=== PATIENT | male | born 1985 | race Caucasian/White ===

== ENCOUNTER 2023-07-20 20:57 | Emergency (ER) | payer MEDICAID, SELFPAY ==
[2023-07-20] VITALS (15 sets, daily range): BP systolic 126–180; BP diastolic 86–153; PULSE 79–101; RESP 6–32; TEMP 36.9; O2SAT 93–98; BMI 25.1
--- NOTE | 2023-07-20 21:09 | ECG_ITS ---
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
--- NOTE | 2023-07-20 21:11 | ED_ITS ---
Documented by User: DEANNA Higuera 07/20/23 21:44 HPI - SOB/Dyspnea General Chief Complaint: Shortness of Breath/Dyspnea Stated Complaint: DIFF BREATHING, ASTHMA DIFF SPEAKING Time Seen by Provider: 07/20/23 21:03 Source: patient Mode of arrival: walk-in Limitations: no limitations History of Present Illness HPI Narrative: patient is a 38-year-old male with a history of asthma presents to the emergency department for shortness of breath and wheezing over the last two weeks. Patient has a history of asthma, he uses a rescue inhaler, Flovent and nebulizers as needed. He did an albuterol nebulizer prior to arrival. He has been on Tessalon Perles, Medrol Dosepak. he states he has had pain in the chest as well as tightness. He continues to use a vape daily. He denies fevers, vomiting. He has had occasional sputum production. He reports significant shortness of breath with exertion as well as palpitations. Related Data Home Medications Medication Instructions Recorded Confirmed albuterol sulfate 1.25 mg/3 mL mg 07/20/23 solution for nebulization albuterol sulfate 90 mcg/actuation inhalation 07/20/23 aerosol inhaler Allergies Allergy/AdvReac Type Severity Reaction Status Date / Time morphine Allergy Mild itchy Verified 07/20/23 21:04 Review of Systems ROS Constitutional Denies: fever or chills Ears, nose, mouth, and throat Denies: throat pain Cardiovascular Reports: chest pain Respiratory Reports: shortness of breath, cough and wheezing Gastrointestinal Denies: abdominal pain, nausea or vomiting Musculoskeletal Denies: back pain Integumentary/Breast Denies: rash Neurological Denies: headache Endocrine Denies: excessive urination PFSH PFS Social History Smoking status: Current every day smoker Exam Narrative Exam Narrative: Gen.: Awake, alert, in no distress Head: Normocephalic, atraumatic ENT: Moist mucous membranes Respiratory: No respiratory distress, patient speaks in full sentences, tachypnea noted with significant inspiratory and expiratory wheezing. Wheezing is worse on the left upper and lower lobes Cardio: tachycardia Extremities: Moves extremities equally Psych: Normal mood and affect Neuro: No focal neuro deficit Skin: Warm, dry, intact Constitutional Vital Signs, click to edit/add: Last Vital Signs Temp 98.5 F 07/20/23 21:00 Pulse 81 07/21/23 00:00 Resp 19 07/21/23 00:00 BP 126/86 07/20/23 22:00 Pulse Ox 93 L 07/20/23 23:21 O2 Del Method Room Air 07/20/23 23:21 Course Vital Signs Vital signs: Vital Signs Temperature 98.5 F 07/20/23 21:00 Pulse Rate 101 H 07/20/23 21:00 Respiratory Rate 22 07/20/23 21:00 Blood Pressure 156/104 H 07/20/23 21:00 Pulse Oximetry 94 L 07/20/23 21:00 Oxygen Delivery Method Room Air 07/20/23 21:00 Temperature 98.5 F 07/20/23 21:00 Pulse Rate 81 07/21/23 00:00 Respiratory Rate 19 07/21/23 00:00 Blood Pressure 126/86 07/20/23 22:00 Pulse Oximetry 93 L 07/20/23 23:21 Oxygen Delivery Method Room Air 07/20/23 23:21 MDM - SOB/Dyspnea MDM Narrative Medical decision making narrative: 2144: patient was medicated with breathing treatment, IV Solu-Medrol and fluids as well as IV magnesium. Lab studies show normal d-dimer,remainder of the lab studies are pending and chest x-ray is also pending. case is turned over to attending physician for repeat evaluation, review of results and disposition. Medical Records Attestation: I reviewed the patient's medical records. Lab Data Attestation: I reviewed the patient's lab results. Labs: Lab Results 07/20/23 Range/Units 21:10 WBC 12.7 H (4.0-11.0) 10^3/uL RBC 4.84 (4.70-6.10) 10^6/uL Hgb 15.0 (14.0-18.0) g/dL Hct 44.5 (42.0-54.0) % MCV 91.9 (80.0-94.0) fL MCH 31.0 (25.9-34.0) pg MCHC 33.7 (29.9-35.2) g/dL RDW 12.4 (11.0-15.0) % Plt Count 257 (150-450) 10^3/uL MPV 10.5 (9.5-13.5) fL Neut % (Auto) 53.8 (43.0-75.0) % Lymph % (Auto) 22.1 (20.5-60.0) % Spencer % (Auto) 12.0 (1.7-12.0) % Eos % (Auto) 11.1 H (0.9-7.0) % Baso % (Auto) 0.8 (0.2-2.0) % Neut # (Auto) 6.8 H (1.4-6.5) 10^3/uL Lymph # (Auto) 2.8 (1.2-3.8) 10^3/uL Spencer # (Auto) 1.5 H (0.3-0.8) 10^3/uL Eos # (Auto) 1.4 H (0.0-0.7) 10^3/uL Baso # (Auto) 0.1 (0.0-0.1) 10^3/uL Abs Immat Gran (auto) 0.03 (0.00-0.03) 10^3/uL Imm/Tot Granulo (auto) 0.2 (0.0-0.5) % PT 9.8 (9.0-11.6) sec INR <0.93 APTT 40.4 H* (22.3-36.2) sec D-Dimer 0.21 (<=0.59) mg/L FEU VBG pH 7.423 (7.330-7.430) VBG pCO2 43.6 (40.0-52.0) mmHg Sodium 135 L (136-145) mmol/L Potassium 3.3 L (3.5-5.1) mmol/L Chloride 99 (98-107) mmol/L Carbon Dioxide 28.7 (21.0-32.0) mmol/L Anion Gap 10.6 BUN 14.0 (7.0-18.0) mg/dL Creatinine 1.03 (0.70-1.30) mg/dL Est GFR ( Amer) >60 (>=60) Est GFR (Non-Af Amer) >60 (>=60) BUN/Creatinine Ratio 13.6 Glucose 94 (74-106) mg/dL Calcium 9.0 (8.5-10.1) mg/dL Total Bilirubin 0.4 (0.2-1.0) mg/dL AST 32 (15-37) U/L ALT 48 (16-63) U/L Alkaline Phosphatase 104 (46-116) U/L Troponin I High Sens 4.2 (4.0-76.1) pg/mL NT-Pro-B Natriuret Pep 12.0 (<=450.0) pg/mL Total Protein 7.5 (6.4-8.2) g/dL Albumin 3.4 (3.4-5.0) g/dL Globulin 4.1 g/dL Albumin/Globulin Ratio 0.8 ECG Data Attestation: I personally reviewed and interpreted this ECG as follows: (normal sinus rhythm at a rate of ninety-five, no acute ST elevation, no ectopy. EKG reviewed by attending physician) ECG interpretation date: 07/20/23 ECG interpretation time: 21:23 Discharge Plan Discharge Chief Complaint: Shortness of Breath/Dyspnea Clinical Impression: Shortness of breath, Asthma with acute exacerbation Patient Disposition: Home, Self-Care Prescriptions / Home Meds: No Action albuterol sulfate 1.25 mg/3 mL solution for nebulization albuterol sulfate 90 mcg/actuation HFA aerosol inhaler INHALATION Instructions: Asthma (ED) Additional Instructions: follow up with your doctor tomorrow for recheck Stand Alone Forms: Portal Instructions Referrals: RAJIV SHOOK [Primary Care Provider] - 1 week Documented by User: Javon Avila MD 07/21/23 00:33 HPI - SOB/Dyspnea General Chief Complaint: Shortness of Breath/Dyspnea Stated Complaint: DIFF BREATHING, ASTHMA DIFF SPEAKING Time Seen by Provider: 07/20/23 21:03 Related Data Home Medications Medication Instructions Recorded Confirmed albuterol sulfate 1.25 mg/3 mL mg 07/20/23 solution for nebulization albuterol sulfate 90 mcg/actuation inhalation 07/20/23 aerosol inhaler Allergies Allergy/AdvReac Type Severity Reaction Status Date / Time morphine Allergy Mild itchy Verified 07/20/23 21:04 PFSH PFS Social History Smoking status: Current every day smoker Exam Constitutional Vital Signs, click to edit/add: Last Vital Signs Temp 98.5 F 07/20/23 21:00 Pulse 81 07/21/23 00:00 Resp 19 07/21/23 00:00 BP 126/86 07/20/23 22:00 Pulse Ox 93 L 07/20/23 23:21 O2 Del Method Room Air 07/20/23 23:21 Course Vital Signs Vital signs: Vital Signs Temperature 98.5 F 07/20/23 21:00 Pulse Rate 101 H 07/20/23 21:00 Respiratory Rate 22 07/20/23 21:00 Blood Pressure 156/104 H 07/20/23 21:00 Pulse Oximetry 94 L 07/20/23 21:00 Oxygen Delivery Method Room Air 07/20/23 21:00 Temperature 98.5 F 07/20/23 21:00 Pulse Rate 81 07/21/23 00:00 Respiratory Rate 19 07/21/23 00:00 Blood Pressure 126/86 07/20/23 22:00 Pulse Oximetry 93 L 07/20/23 23:21 Oxygen Delivery Method Room Air 07/20/23 23:21 MDM - SOB/Dyspnea MDM Narrative Medical decision making narrative: 2144: patient was medicated with breathing treatment, IV Solu-Medrol and fluids as well as IV magnesium. Lab studies show normal d-dimer,remainder of the lab studies are pending and chest x-ray is also pending. case is turned over to attending physician for repeat evaluation, review of results and disposition. patient re examined. Still has exp wheezes that are loose. Was given 2nd Duoneb treatment . Wheezing improved and was spotty . He felt better and was breathing comfortably. He has a nebulizer at home and an inhaler. Exercise pulse ox performed and remained normal and he never appeared dyspnea. Discharged home in good condition Lab Data Labs: Lab Results 07/20/23 Range/Units 21:10 WBC 12.7 H (4.0-11.0) 10^3/uL RBC 4.84 (4.70-6.10) 10^6/uL Hgb 15.0 (14.0-18.0) g/dL Hct 44.5 (42.0-54.0) % MCV 91.9 (80.0-94.0) fL MCH 31.0 (25.9-34.0) pg MCHC 33.7 (29.9-35.2) g/dL RDW 12.4 (11.0-15.0) % Plt Count 257 (150-450) 10^3/uL MPV 10.5 (9.5-13.5) fL Neut % (Auto) 53.8 (43.0-75.0) % Lymph % (Auto) 22.1 (20.5-60.0) % Spencer % (Auto) 12.0 (1.7-12.0) % Eos % (Auto) 11.1 H (0.9-7.0) % Baso % (Auto) 0.8 (0.2-2.0) % Neut # (Auto) 6.8 H (1.4-6.5) 10^3/uL Lymph # (Auto) 2.8 (1.2-3.8) 10^3/uL Spencer # (Auto) 1.5 H (0.3-0.8) 10^3/uL Eos # (Auto) 1.4 H (0.0-0.7) 10^3/uL Baso # (Auto) 0.1 (0.0-0.1) 10^3/uL Abs Immat Gran (auto) 0.03 (0.00-0.03) 10^3/uL Imm/Tot Granulo (auto) 0.2 (0.0-0.5) % PT 9.8 (9.0-11.6) sec INR <0.93 APTT 40.4 H* (22.3-36.2) sec D-Dimer 0.21 (<=0.59) mg/L FEU VBG pH 7.423 (7.330-7.430) VBG pCO2 43.6 (40.0-52.0) mmHg Sodium 135 L (136-145) mmol/L Potassium 3.3 L (3.5-5.1) mmol/L Chloride 99 (98-107) mmol/L Carbon Dioxide 28.7 (21.0-32.0) mmol/L Anion Gap 10.6 BUN 14.0 (7.0-18.0) mg/dL Creatinine 1.03 (0.70-1.30) mg/dL Est GFR ( Amer) >60 (>=60) Est GFR (Non-Af Amer) >60 (>=60) BUN/Creatinine Ratio 13.6 Glucose 94 (74-106) mg/dL Calcium 9.0 (8.5-10.1) mg/dL Total Bilirubin 0.4 (0.2-1.0) mg/dL AST 32 (15-37) U/L ALT 48 (16-63) U/L Alkaline Phosphatase 104 (46-116) U/L Troponin I High Sens 4.2 (4.0-76.1) pg/mL NT-Pro-B Natriuret Pep 12.0 (<=450.0) pg/mL Total Protein 7.5 (6.4-8.2) g/dL Albumin 3.4 (3.4-5.0) g/dL Globulin 4.1 g/dL Albumin/Globulin Ratio 0.8 Discharge Plan Discharge Chief Complaint: Shortness of Breath/Dyspnea Clinical Impression: Shortness of breath, Asthma with acute exacerbation Patient Disposition: Home, Self-Care Prescriptions / Home Meds: No Action albuterol sulfate 1.25 mg/3 mL solution for nebulization albuterol sulfate 90 mcg/actuation HFA aerosol inhaler INHALATION Instructions: Asthma (ED) Additional Instructions: follow up with your doctor tomorrow for recheck Stand Alone Forms: Portal Instructions Referrals: RAJIV SHOOK [Primary Care Provider] - 1 week
[2023-07-20 21:18] LABS: Basophils Absolute Auto 0.1 10^3/uL (0.0-0.1); Basophils Percent Auto 0.8 % (0.2-2.0); Eosinophils Absolute Auto 1.4 10^3/uL (0.0-0.7); Eosinophils Percent Auto 11.1 % (0.9-7.0); Hematocrit 44.5 % (42.0-54.0); Immature Granulocytes Abs Auto 0.03 10^3/uL (0.00-0.03); Immature Granulocytes Pct Auto 0.2 % (0.0-0.5); Lymphocytes Absolute Auto 2.8 10^3/uL (1.2-3.8); Lymphocytes Percent Auto 22.1 % (20.5-60.0); Mean Corpuscular HGB Conc 33.7 g/dL (29.9-35.2); Mean Corpuscular Volume 91.9 fL (80.0-94.0); Mean Platelet Volume 10.5 fL (9.5-13.5); Monocytes Absolute Auto 1.5 10^3/uL (0.3-0.8); Neutrophils Absolute Auto 6.8 10^3/uL (1.4-6.5); Neutrophils Percent Auto 53.8 % (43.0-75.0); PCO2 VBG 43.6 mmHg (40.0-52.0); Platelet Count 257 10^3/uL (150-450); Red Blood Count 4.84 10^6/uL (4.70-6.10); Red Cell Distribution Width 12.4 % (11.0-15.0); White Blood Count 12.7 10^3/uL (4.0-11.0); pH VBG 7.423 (7.330-7.430)
[2023-07-20] MEDS: IPRATROPIUM/ALBUTEROL SULFATE 3 ML AMPUL.NEB IH ×2 (21:19→23:21)
[2023-07-20] MEDS: 0.9 % SODIUM CHLORIDE 1,000 ML 1000 ML IV (21:22)
[2023-07-20] MEDS: MAGNESIUM SULFATE IN WATER 2 GM/50 ML PREMIX IV (21:22)
[2023-07-20] MEDS: METHYLPREDNISOLONE SOD SUCC PF 125 MG/2 ML VIAL IVP (21:22)
[2023-07-20 21:40] LABS: D Dimer 0.21 mg/L FEU (<=0.59); INR <0.93; Prothrombin Time 9.8 sec (9.0-11.6)
[2023-07-20 21:41] LABS: Partial Thromboplastin Time 40.4 sec (22.3-36.2)
--- NOTE | 2023-07-20 21:42 | XR_ITS ---
The [address] [address] Patient Name: DIONNE MARTINEZ MRN: [id number] date: 1985 Sex: M Assigned Patient Location: ED.MAIN Current Patient Location: ED.MAIN Accession/Order Number: [id number] Exam Date: 07/20/2023 22:02 Report Date: 07/20/2023 22:20 At the request of: MARGE HOWELL Procedure: XR chest 1V EXAMINATION: XR chest 1V HISTORY: Chest tightness and shortness of breath COMPARISON: Chest x-rays 08/17/2019 TECHNIQUE: Portable chest FINDINGS: The lung parenchyma is free of consolidation or infiltrate. No pneumothorax or pleural effusion. The cardiac, mediastinal and hilar contours are normal. The visualized osseous structures exhibit no gross abnormality. XR/XR chest 1V IMPRESSION: No acute cardiopulmonary abnormality. Electronically authenticated by: ADINA CHACON Date: 07/20/2023 22:20
[2023-07-20 21:44] LABS: Alanine Aminotransferase 48 U/L (16-63); Albumin Globulin Ratio 0.8; Albumin Level 3.4 g/dL (3.4-5.0); Alkaline Phosphatase 104 U/L (46-116); Anion Gap 10.6; Aspartate Amino Transferase 32 U/L (15-37); BUN Creatinine Ratio 13.6; Bilirubin Total 0.4 mg/dL (0.2-1.0); Carbon Dioxide 28.7 mmol/L (21.0-32.0); Chloride 99 mmol/L (98-107); Estimated GFR (African America >60 (>=60); Estimated GFR (Non-African Ame >60 (>=60); Globulin 4.1 g/dL; Glucose 94 mg/dL (74-106); Potassium 3.3 mmol/L (3.5-5.1); Sodium 135 mmol/L (136-145); Total Protein 7.5 g/dL (6.4-8.2); Troponin I High Sensitivity 4.2 pg/mL (4.0-76.1)
--- NOTE | 2023-07-20 21:53 | PC.NURSE ---
patient has asthma, has been SOB for 2 weeks. has been to [facility], finished a medrol dose pack, did not help was prescribed another today but has not started it. patient has exertion with talking. inspiratory and expiratory wheezes. patient continues to use vape mulitiple times a day. patient was able to ambulate unassisted.
--- NOTE | 2023-07-20 23:46 | PC.NURSE ---
upon auscultation after second duoneb patients expiratory wheezes on right lower and upper and left upper have improved, very soft expiratory wheeze. left lower lung expiratory wheeze has quieted quite a bit but can still be heard. patient states he feels alot better.
[2023-07-21] VITALS: PULSE 81; RESP 19
[2023-07-21 00:30] VITALS: PULSE 79; RESP 17
== END 2023-07-21 01:03 | disposition home or self-care (01) ==
PROVIDERS: Physician Assistant; Emergency Provider Internal Medicine
DX: J45.901 Unspecified asthma with (acute) exacerbation (principal); F17.290 Nicotine dependence, other tobacco product, uncomplicated
CPT/HCPCS: 36415; 71045; 80053; 82800; 83880; 84484; 85025; 85378; 85610; 85730; 93005; 94640; 96365; 96375; 99285; J2930

== ENCOUNTER 2023-10-23 09:09 | Outpatient (OUT) | payer BC, MEDICAID, SELFPAY ==
--- OUTSIDE RECORDS SUMMARY | 2023-10-23 09:13 | XMS_ITS | CCD ---
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 Name Role Phone Unavailable Primary Care Provider Unavailabl e ADAMA, DR ARAYA Attending Unavailable PAY, DR ARAYA Consulting Unavailable PAY, DR ARAYA Admitting Unavailable MARELY, TAMANNA Primary Care Unavailable Madisyn Lea Unavailable Marely TERRAZZO SUPERVISOR-C, Tamanna A Attending Unavailable Marely TERRAZZO SUPERVISOR-C, Tamanna A Admitting Unavailable Marely TERRAZZO SUPERVISOR-C, Tamanna A Primary Care Unavailable Marely TERRAZZO SUPERVISOR-C, Tamanna A Admitting Unavailable Marely TERRAZZO SUPERVISOR-C, Tamanna A Attending Unavailable Marely TERRAZZO SUPERVISOR-C, Tamanna A Primary Care Unavailable Marely TERRAZZO SUPERVISOR-C, Tamanna A Attending Unavailable Marely TERRAZZO SUPERVISOR-C, Tamanna A Primary Care Unavailable Marely TERRAZZO SUPERVISOR-C, Tamanna A Attending Unavailable Marely TERRAZZO SUPERVISOR-C, Tamanna A Primary Care Unavailable Marely TERRAZZO SUPERVISOR-C, Tamanna A Attending Unavailable Marely TERRAZZO SUPERVISOR-C, Tamanna A Primary Care Unavailable Marely TERRAZZO SUPERVISOR-C, Tamanna A Attending Unavailable Marely TERRAZZO SUPERVISOR-C, Tamanna A Primary Care Unavailable Allergies Allergy Classification Reported Allergen(s) Allergy Type Date of Onset Reaction(s) Facility (2 sources) Morphine; Translations: [morphine] Drug Allergy 05-20-[address] [facility] Repository (1 source) Morphine Drug Allergy itch [employer]ent[facility] Other Medications Current Medications Medication Drug Class(es) Dates Sig (Normalized) Sig (Original) Albuterol (4 sources) beta2-Adrenergic Agonist Albuter ol solution Active Albuterol Sulfat e HFA Active albuterol HFA (P ROAIR HFA) 90 mcg/actuation inhaler Inhale 2 Puffs as instructed as needed. 0 Active Comment on above: Inhale 2 Puffs as in structed as needed. benzonatate 200 mg oral capsule (1 source) Non-narcotic Antitussive Start: take 1 capsule by mouth every eight hours Benzonatate 200 MG 1 capsule Orally Three times a day Jun, Active methylPREDNISolone 4 mg oral tablet (1 source) Corticosteroid Start: Medrol 4 MG as directed Orally As Directed for 6 days Jun, Active Completed/Discontinued Medications Medication Drug Class(es) Dates Sig (Normalized) Sig (Original) Dexamethasone (1 source) Corticosteroid Start: 07-16-2023 DEXAMETHASONE Jun, 10 mg Ketorolac (1 source) Nonsteroidal Anti-inflammatory Drug, Cyclooxygenase Inhibitor Start: 06-15-2016 Toradol per 15 mg May, 60 mg Problems Active Problems Problem Classification Problem Date Documented Da te Episodic/Chronic Abdominal pain (2 sources) Abdominal pain; Translations: [Unspecified abdominal pain] Episodic Asthma (1 source) Unspecified asthma with (acute) exacerbation Chronic Gastrointestinal hemorrhage (1 source) Hematochezia; Translations: [Melena] Episodic Other gastrointestinal disorders (1 source) Irritable bowel syndrome with diarrhea; Translations: [Irritable bowel syndrome with diarrhea] Chronic Other gastrointestinal disorders (2 sources) Diarrhea; Translations: [Diarrhea, unspecified] Episodic Other gastrointestinal disorders (1 source) Spurious diarrhea - overflow; Translations: [Diarrhea, unspecified] Episodic Other nutritional; endocrine; and metabolic disorders (1 source) Body mass index 25-29 - overweight; Translations: [Body mass index (BMI) 26.0-26.9, adult] Episodic Sprains and strains (1 source) Lumbar sprain; Translations: [Sprain of ligaments of lumbar spine, initial encounter] Episodic Unclassified (3 sources) CONTACT W/AND (SUSP) EXPOS COVID-19; Translations: [CONTACT W/AND (SUSP) EXPOS COVID-19] Onset: 06-25-2021 Past or Other Problems Problem Classification Problem Date Documented Da te Episodic/Chronic Unclassified (1 source) CONTACT W/AND (SUSP) EXPOS COVID-19; Translations: [CONTACT W/AND (SUSP) EXPOS COVID-19] Onset: 06-11-2021 Results Test Name Value Interpretation Reference Range Facility Outside Record[facility] 10-16-2023 Outside Records [id number]#[facility] 09-14-2023 Outside Records [id number]#1. [facility] 08-22-2023 Outside Records [id number] #1.00[facility] Rad - Other Radiology Report on 08-21-2023 Rad - Other Radiology Report [id number]# 1[facility] 08-17-2023 Outside Records [id number]#1 .[facility] 08-16-2023 Outside Records [id number]#1. [facility] 08-14-2023 Outside Records [id number] #1.00[facility] Outside [facility] 08-07-2023 Outside Records [id number]#1 .[facility] 07-26-2023 Outside Records [id number] #1.[facility] Covid-19 PCR (CVDTB)on 05-20 SARS-CoV-2 (COVID-19) RNA MAYRA+probe Ql (Unsp spec) Not detected Normal NOT DETECTED [facility] Comment on above: Result Comment: This test is not yet approved or cleared by the [place] FDA. When there are no FDA-approved or cleared tests available, and other criteria are met, FDA can make tests available under an emergency access mechanism called an Emergency Use Authorization (EUA). The EUA for this test is supported by the [place] of Health and Human Service's (HHS's) declaration that circumstances exist to justify the emergency use of in vitro diagnostics for the detection and/or diagnosis of the virus that causes COVID-19. This EUA will remain in effect (meaning this test can be used) for the duration of the COVID-19 declaration justifying emergency of IVDs, unless it is terminated or revoked by FDA (after which the test may no longer be used). When diagnostic testing is negative, the possibility of a false negative should be considered in the context of a patient's recent exposures and the presence of clinical signs and symptoms consistent with SARS-CoV-2. Performed By: #### C AMINA, JAXSONS #### [facility] [address] [place] [address] Dr. Kellie Raya SYMPTOMATIC COVID-19 ANTIGEN on 06-11-2021 EUA Statement SEE BELOW Normal [facility] Comment on above: Result Comment: This test has not been FDA cleared or approved, but has been authorized by the FDA under an Emergency Use Authorization (EUA) for use by authorized laboratories certified under CLIA that meet the requirements to perform moderate or high complexity testing. This test has been authorized only for the detection of proteins from SARS-CoV-2, not for any other viruses or pathogens. The emergency use of this test is authorized for the duration of the declaration that circumstances exist justifying the authorization of emergency use of in vitro diagnostic tests for detection and/or diagnosis of Covid-19 under section 564(b)(1) of the Act, 21 U.S.C. 360bbb-3(b)(1), unless the declaration is terminated or authorization is revoked sooner. Performed By: #### C PATRICIO, CVDAGS #### [facility] [address] [place] [address] Dr. Kellie Raya SARS-CoV-2 (COVID-19) RNA MAYRA+probe Ql (Unsp spec) Negative Normal NEGATIVE [facility] Comment on above: Result Comment: CONF IRMATION BY PCR PENDING PER CDC GUIDELINES/ SYMPTOMATIC PATIENT. Performed By: #### C VDTB, CVDAGS #### [facility] [address] [place] [address] Dr. Kellie Crystal 04-02-2021 [facility] Telephone (GASTSP) IISAH MARTINEZ ([id number]) 1985 M Date Time Provider Department 04/02/21 NIEVES KENNY [facility] During your visit today, we recorded the following information about you: Nieves Kenny MD 04/02/2021 11:46 AM Signed No show for virtual visit. Unable to reach patient by phone. 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 Problem List As Of Date: 04/02/2021 (None) Encounter Status:[facility] Tele[facility] ([facility]ST[facility]) ISIAH MARTINEZ ([id number]) 1985 M Date Time Provider Department 03/02/21 ABIGAIL BAUTISTA [facility] During your visit today, we recorded the following information about you: JUDITH Escobar 03/02/2021 8:08 AM Signed External records received; scanned into Domob and forwarded to JUDITH Mcdaniel Allergies As of Date: 03/02/2021 (Not on File) Date Reviewed: Never Reviewed Reason for Visit: Received Outside Medical Records [[id number]] Prescriptions as of 03/02/2021 Sig: ALBUTEROL SULFATE HFA 90 MCG/* Inhale 2 Puffs as instructed * Problem List As Of Date: 03/02/2021 (None) Encounter Status:Closed by LYN QUAN on 03/03/21 [facility] 01-27-2021 [facility] Telephone (GAST[facility]) ISIAH MARTINEZ ([id number]) 1985 Date Time Provider Department 01/27/21 NIEVES KENNY [facility] During your visit today, we recorded the following information about you: JUDITH Escobar 01/27/2021 3:49 PM Signed External records received from [facility] Scanned to Domob and forwarded to JUDITH Mcdaniel MD 01/28/2021 2:59 PM Signed Outside records reviewed. EGD 10/2018 --LA grade A esophagitis (biopsies unremarkable) --Stomach, duodenum unremarkable Colonoscopy 11/2017 --Hemorrhoids --ileum and colon otherwise unermarkable --Random biopsies obtained for microscopic colitis (biopsies unremarkable) Allergies As of Date: 01/27/2021 (Not on File) Date Reviewed: Never Reviewed Reason for Visit: Received Outside Medical Records [[id number]] Prescriptions as of 01/27/2021 Sig: ALBUTEROL SULFATE HFA 90 MCG/* Inhale 2 Puffs as instructed * Problem List As Of Date: 01/27/2021 (None) Encounter Status:Closed by LYN QUAN on 01/28/21 [facility] 01-25-2021 [facility] Telephone (GASTSP) ISIAH MARTINEZ ([id number]) 1985 Date Time Provider Department 01/25/21 NIEVES KENNY [facility] During your visit today, we recorded the following information about you: Manuela Martin 01/25/2021 2:39 PM Signed Isiah Martinez is calling Nieves Kenny MD today with concern regarding the miralax it is giving him severe diarrhea. Patient has been identified by name and birthdate.yes Duration of symptoms:ongoing Person calling: self Call patient at: at home [phone] (home) Was an appointment scheduled: No Closing statement: Symptom Call: Thank you for calling [facility], your call is very important. A nurse will call in approximately 2-4 hours during business hours. If this is an emergency, please contact 911. Manuela Trevino RN 01/26/2021 3:45 PM Signed Called patient - left voice mail message - request call back to get additional information. Lyn Kadeem, JUDITH 01/26/2021 4:05 PM Signed Patient was taking 4 capfuls a day for over a week and has had diarrhea 10-15 bouts a day. For the past two days he is only taking one capful a day but has not had a BM but is cramping. He has Lost 12 lbs in the past 12 days. He has not been eating much because he was having diarrhea. He thought Dr Kenny said he may have had a partial blockage and to do the titrated miralax and then his system would reset. He wants to know now what Dr kenny wants him to do. Since he is cramping should he increase the miralax or no because of the diarrhea. He has been drinking plenty of water. He did feel like he emptied out pretty well and felt good taking the 4 capfuls but then he thought he was having too much diarrhea and called the on-call GI doctor who told him to back off on it and to contact our office. JUDITH Escobar CT 01/27/2021 3:17 PM Signed Nieves Kenny MD You 3 hours ago (12:03 PM) Please schedule a virtual visit for 01/29. He can resume miralax in the interim. Nieves Kenny MD Patient called. Scheduled for noon virtual 01/29. JUDITH Escobar Hilary Lose 01/28/2021 3:18 PM Signed Please review scheduled appointment and verify correct date with patient. Allergies As of Date: 01/25/2021 (Not on File) Date Reviewed: Never Reviewed Reason for Visit: Patient Update [1234] Prescriptions as of 01/25/2021 Sig: ALBUTEROL SULFATE HFA 90 MCG/* Inhale 2 Puffs as instructed * Problem List As Of Date: 01/25/2021 (None) Encounter Status:Closed by OTILIA TREVINO RN on 01/26/21 [facility] 01[facility]13-2021 [facility] ISIAH MARTINEZ ([id number]) 1985 Date Time Provider Department 01/13/21 NIEVES KENNY [facility] During your visit today, we recorded the following information about you: Nieves Kenny MD 01/13/2021 1:28 PM Signed Brief Telephone Note: The patient was contacted by phone. KUB revealed a large stool burden suggestive of likely overflow diarrhea. Recommend the patient proceed with bowel clean out followed by titrated miralax. Team -- please provide the patient with clean out instructions (miralax prep). MD Lyn Purvis CT 01/13/2021 2:01 PM Signed Patient advised. miralax prep emailed to patient. Lyn JUDITH Quan Allergies As of Date: 01/13/2021 (Not on File) Date Reviewed: Never Reviewed Reason for Visit: Results [95] Prescriptions as of 01/13/2021 Sig: ALBUTEROL SULFATE HFA 90 MCG/* Inhale 2 Puffs as instructed * Problem List As Of Date: 01/13/2021 (None) Encounter Status:Closed by NIEVES KENNY on 01/13/21 [facility] CNPN Telephone (GASTSP) ISIAH MARTINEZ ([id number]) 1985 Date Time Provider Department 01/13/21 NIEVES KENNY [facility] During your visit today, we recorded the following information about you: Manuela Martin 01/13/2021 12:52 PM Signed Message Received: Yesterday MD Chavez Purvis Ddsi Clerical Pool; Chavez Choe Dds[facility] Clinical Pool Please schedule for virtual visit in 4 weeks Manuela Martin 01/13/2021 12:52 PM Signed Left message to call office. 01/13/2021 12:51 PM Allergies As of Date: 01/13/2021 (Not on File) Date Reviewed: Never Reviewed Reason for Visit: 4 WEEK FOLLOW UP [Other] Prescriptions as of 01/13/2021 Sig: ALBUTEROL SULFATE HFA 90 MCG/* Inhale 2 Puffs as instructed * Problem List As Of Date: 01/13/2021 (None) Encounter Status:Closed by MANUELA MARTIN on 01/13/21 [facility] C-Reactive Proteinon 021 CRP [Mass/Vol] mg/L Normal <0.9 [facility] Comment on above: Performed By: #### C ELSCR, CRP #### [phone] CBC W Auto Differential pane l (Bld)on 01-12-2021 Basophils (Bld) [#/Vol] 0.08 10*3/uL <0.11 k/uL [facility] Basophils/100 WBC (Bld) 0.9 % [facility] Differential cell count method Nom (Bld) Auto Diff [facility] Eosinophils (Bld) [#/Vol] 0.48 10*3/uL High <0.46 k/uL [facility] Eosinophils/100 WBC (Bld) 5.3 % [facility] Erythrocyte distribution width (RBC) [Ratio] 12.7 % 11.5 - 15.0 % [facility] Hematocrit (Bld) [Volume fraction] 49.5 % 39.0 - 51.0 % [facility] Hemoglobin (Bld) [Mass/Vol] 16.6 g/dL 13.0 - 17.0 g/dL [facility] Lymphocytes (Bld) [#/Vol] 1.94 10*3/uL 1.00 - 4.00 k/uL [facility] Lymphocytes/100 WBC (Bld) 21.2 % [facility] MCH (RBC) [Entitic mass] 30.8 pG 26.0 - 34.[address] [facility] MCHC (RBC) [Mass/Vol] 33.5 g/dL 30.5 - 36.0 g/dL [facility] MCV (RBC) [Entitic vol] 91.8 fL 80.0 - 100.[address] [facility] Monocytes (Bld) [#/Vol] 0.99 10*3/uL High <0.87 k/uL [facility] Monocytes/100 WBC (Bld) 10.8 % [facility] Neutrophils (Bld) [#/Vol] 5.64 10*3/uL 1.45 - 7.50 k/uL [facility] Neutrophils/100 WBC (Bld) 61.8 % [facility] Nucleated RBC (Bld) [#/Vol] 10*3/uL <0.01 k/uL [facility] Nucleated Reds 0.0 /100 WBC 0 /100 WBC [facility] Platelet mean volume (Bld) [Entitic vol] 11.2 fL 9.0 - 12.[address] [facility] Platelets (Bld) [#/Vol] 228 10*3/uL 150 - 400 k/uL [facility] RBC (Bld) [#/Vol] 5.39 10*6/uL 4.20 - 6.0 0 m/uL [facility] WBC (Bld) [#/Vol] 9.13 10*3/uL 3.70 - 11. 00 k/uL [facility] CBC and Differentialon 01-12 Abs Baso 0.08 k/uL Normal <0.11 [facility] Comment on above: Performed By: #### C ELSCR, CRP #### [place] [id number] [place] [address] Abs [place] 0.99 k/uL High <0.87 [facility] Comment on above: Performed By: #### C ELSCR, CRP #### [place] [address] Abs Neut 5.64 k/uL Normal 1.45-7.50 [facility] Comment on above: Performed By: #### C ELSCR, CRP #### [place] [id number] Absolute nRBC <0.01 Normal <0.01 [facility] Comment on above: Performed By: #### C ELSCR, CRP #### [place] [id number] Basophils/100 WBC (Bld) 0.9 % Normal [facility] Comment on above: Performed By: #### C ELSCR, CRP #### [place] [id number] [place] [address] DTYPE Auto Diff Normal [facility] Comment on above: Performed By: #### C ELSCR, CRP #### [place] [id number] [place] [id number] Eosinophils (Bld) [#/Vol] 0.48 10*3/uL High <0.46 [facility] Comment on above: Performed By: #### C ELSCR, CRP #### [place] [address] [place] [address] Eosinophils/100 WBC (Bld) 5.3 % Normal [facility] Comment on above: Performed By: #### C ELSCR, CRP #### [place] [address] Erythrocyte distribution width (RBC) [Ratio] 12.7 % Normal 11.5-15.0 [facility] Comment on above: Performed By: #### C ELSCR, CRP #### [place] [address] Hematocrit (Bld) [Volume fraction] 49.5 % Normal 39.0-51.0 [facility] Comment on above: Performed By: #### C ELSCR, CRP #### [place] [address] Hemoglobin (Bld) [Mass/Vol] 16.6 g/dL Normal 13.0-17.0 [facility] Comment on above: Performed By: #### C ELSCR, CRP #### [place] [address] Lymphocytes (Bld) [#/Vol] 1.94 10*3/uL Normal 1.00-4.00 [facility] Comment on above: Performed By: #### C ELSCR, CRP #### [place] [id number] [place] [address] Lymphocytes/100 WBC (Bld) 21.2 % Normal [facility] Comment on above: Performed By: #### C ELSCR, CRP #### [place] [address] MCH 30.8 pG Normal 26.0-34.0 [facility] Comment on above: Performed By: #### C ELSCR, CRP #### [place] [address] MCHC (RBC) [Mass/Vol] 33.5 g/dL Normal 30.5-36.0 [facility] Comment on above: Performed By: #### C ELSCR, CRP #### [facility] [address] [place], [place] [address] MCV (RBC) [Entitic vol] 91.8 fL Normal 80.0-100.0 [facility] Comment on above: Performed By: #### C ELSCR, CRP #### [place] [address] [place], [place] [address] Monocytes/100 WBC (Bld) 10.8 % Normal [facility] Comment on above: Performed By: #### C ELSCR, CRP #### [place] [address] [place], [place] [address] Neutrophils/100 WBC (Bld) 61.8 % Normal [facility] Comment on above: Performed By: #### C ELSCR, CRP #### [place] [address] [place], [place] [address] NRBCs 0.0 /100 WBC Normal 0 [facility] Comment on above: Performed By: #### C ELSCR, CRP #### [place] [address] [place], [place] [address] Platelet mean volume (Bld) [Entitic vol] 11.2 fL Normal 9.0-12.7 [facility] Comment on above: Performed By: #### C ELSCR, CRP #### [facility] [address] [place], [place] [address] Platelets (Bld) [#/Vol] 228 10*3/uL Normal 150-400 [facility] Comment on above: Performed By: #### C ELSCR, CRP #### [facility] [address] [place], [place] [address] RBC (Bld) [#/Vol] 5.39 10*6/uL Normal 4.20-6.00 [facility] Comment on above: Performed By: #### C ELSCR, CRP #### [facility] [address] [place] [id number] WBC (Bld) [#/Vol] 9.13 10*3/uL Normal 3.70-11.00 [facility] Comment on above: Performed By: #### C ELSCR, CRP #### [facility] [address] [place], [place] [address] CNOVon 01-12-2021 CNOV Office Visit (GASTSP ) ISIAH MARTINEZ ([id number]) 1985 M Date Time Provider Department 01/12/21 2:30 PM NIEVES KENNY GASTSP During your visit today, we recorded the following information about you: Temperature Pulse Blood pressure Weight 98.9 degrees 81/minute 146/83 80.9 kg Height 1.702 m Nieves Kenny MD 01/12/2021 3:11 PM Signed DEPARTMENT OF GASTROENTEROLOGY AND HEPATOLOGY [facility] Patient: Isiah Martinez Medical Record: [id number] Reason for visit: Chronic diarrhea Subjective HPI Isiah Martinez is a 35 year old male with a past medical history significant for cholecystectomy and asthma, who presented to gastroenterology clinic for chronic diarrhea. He was accompanied by his . Reported 10+ years chronic diarrhea associated with fecal urgency and epigastric abdominal cramping. His abdominal pain intensifies leading up to defecation, after which his symptoms improve. He endorsed straining and incomplete evacuation. Has 0-10 BMs daily, typically bristol 6-7. Symptoms interfere with his daily activities -- he is afraid to be away from a WR. Endorsed some bleeding on the tissue when wiping, previously attributed to hemorrhoids. No steatorrhea. He tried a gluten free diet for a year without improvement, such that he is now on a regular diet. No routine medications. Tried Viberzi without improvement. Recently underwent cholecystectomy, which did not improve his symptoms. Extensive evaluation at [facility], including EGD/colonoscopy and extensive radiographic imaging. Endorsed heartburn exacerbated by albuterol, not previously treated. He does not feel his heartburn is severe enough to warrant therapy. Denied fevers, chills, dysphagia, bowel changes, melena, weight loss. No FHx of IBD. Maternal grandfather with pancreatic ca. Currently smokes tobacco, denied alcohol use. Has used mariajuana for the past year. Review Of Systems Positives as noted in HPI. All other systems were reviewed and negative. Past Medical, Surgical, Family and Social Histories No past medical history on file. No past surgical history on file. Current Outpatient Medications Medication Sig Dispense Refill - albuterol HFA (PROAIR HFA) 90 mcg/actuation inhaler Inhale 2 Puffs as instructed as needed. No current facility-administered medications for this visit. ALLERGIES Not on File No family history on file. Social History Tobacco Use - Smoking status: Current Every Day Smoker Types: Cigarettes - Smokeless tobacco: Current User Substance Use Topics - Alcohol use: Not on file - Drug use: Not on file Objective Physical Exam BP 146/83 Pulse 81 Temp 98.9 Ht 5' 7 (1.70m) Wt 178 lb 4.8 oz (80.9kg) BMI 27.92 kg/(m2). Gen: NAD, AOx3 HEENT: MMM Lungs: Wheezes ULs CVS: RRR, no m/r/g Abd: Soft, NT/ND, nl BS, small surgical scar c/d/i Ext: No LE edema, full ROM Skin: Warm and dry Neuro: Moving all ext Labs and Imaging None GI procedures reviewed None Assessment Assessment and Recommendations Isiah Martinez is a 35 year old male with a past medical history significant for cholecystectomy and asthma, who presented to gastroenterology clinic for chronic diarrhea. Reported straining and incomplete evacuation suggestive of possible overflow diarrhea. Differential includes IBS, IBD, dyssynergia, functional disease, etc. Less likely bile acid diarrhea as symptoms pre-date cholecystectomy. Review of extensive prior evaluation needed to direct further assessment. # Abdominal Pain # Suspected Overflow Diarrhea --Send routine labs, celiac screen, CRP --Fecal calprotectin, stool lytes, stool ph --KUB --Baseline EKG --Request for outside records submitted by application support intern --Rtc 4 weeks for visit Nieves Kenny MD Staff, Gastroenterology Referring Provider: SELF [200] Allergies As of Date: 01/12/2021 (Not on File) Date Reviewed: Never Reviewed Reason for Visit: New Patient [172] Cmt: PCP referral - diarrhea 4-5x/wk for 15 yrs. Constant abdominal pain and nausea, no vomiting. Appendix removed 10 yrs ago. GB removed 2019 Primary Visit Diagnosis:Abdominal pain, unspecified abdominal location [R10.9] Other Visit Diagnoses:Diarrhea, unspecified type [R19.7] Overflow diarrhea [R19.7] Order(s):CBC + DIFF [SQCBCDIF] Order #: [id number] FUTURE COMP METABOLIC PANEL [SQCMP] Order #: [id number] FUTURE CELIAC SCREEN WITH REFLEX [SQCELSCR] Order #: [id number] FUTURE PROTHROMBIN TIME/PT [SQPT] Order #: [id number] FUTURE C-REACTIVE PROTEIN (CRP) [SQCRP] Order #: [id number] FUTURE CALPROTECTIN,FECAL [SQCALPRO] Order #: [id number] SODIUM, STOOL [SQSNA] Order #: [id number] POTASSIUM STOOL [SQSK] Order #: [id number] PH, FECAL [SQFECLPH] Order #: [id number] XR ABDOMEN 1V SUPINE [1271 (more content not included)... Normal [facility] Marah 01-12-2021 CNPN Telephone (GASTSP) ISIAH MARTINEZ ([id number]) 1985 M Date Time Provider Department 01/12/21 NIEVES KENNY GAST During your visit today, we recorded the following information about you: Otilia Trevino RN 01/12/2021 4:11 PM Signed Signed consent form faxed to Dr. Abigail Frances at [phone]. Consent form scanned in [employer]. Otilia Trevino RN 01/12/2021 4:11 PM Signed Called [facility]/Dr. Marlon Eldridge at [phone]. Left voice message - request call back for their fax # so that consent form can be faxed over. Awaiting call back. Otilia Trevino RN 01/13/2021 8:[address] Eldridge office to request their fax # so I can fax over signed consent form. Await call back. Otilia Trevino RN 01/20/2021 8:[address] Eldridge office. Given their fax # [phone]. Signed consent form faxed with confirmation. Form scanned in [employer]. Allergies As of Date: 01/12/2021 (Not on File) Date Reviewed: Never Reviewed Reason for Visit: Request Outside Medical Records [4446] Cmt: Dr. Frances [facility]/Dr. Eldridge Prescriptions as of 01/12/2021 Sig: ALBUTEROL SULFATE HFA 90 MCG/* Inhale 2 Puffs as instructed * Problem List As Of Date: 01/12/2021 (None) Encounter Status:Closed by OTILIA TREVINO RN on 01/12/21 Normal [facility] Celiac Scr w Reflexon 2020 IgA [Mass/Vol] 257 mg/dL Normal 70-400 [facility] Comment on above: Performed By: #### C ELSCR, CRP #### [facility] [employer] [address] [id number] Interpretation No serologic evidenc e of celiac disease. Normal No serologic evidence of celiac disease. [facility] Comment on above: Performed By: #### C ELSCR, CRP #### [facility] [employer] [address] [place], [place] [address] Transglutaminase IgA 5 Units Normal <20 [facility] Comment on above: Result Comment: Nega tive : < 20 Units Weak Positive : 20 - 30 Units Moderate Pos to Strong Pos: >30 Units The following results were obtained with the [employer] QUANTA Lite h-tTG IgA LOW. h-tTG IgA values obtained with different manufacturers' assay methods may not be used interchangeably. The magnitude of the reported IgA levels cannot be correlated to an endpoint titer. Performed By: #### C ELSCR, CRP #### [facility] [address] [address] Comp Metabolic Panelon 01-12 Albumin [Mass/Vol] 4.4 g/dL Normal 3.5-5.0 [facility] Comment on above: Performed By: #### C ELSCR, CRP #### [address] [address] [place] [address] ALP [Catalytic activity/Vol] 80 U/L Normal 38-113 [facility] Comment on above: Performed By: #### C ELSCR, CRP #### [place] [address] ALT [Catalytic activity/Vol] 18 U/L Normal 10-54 [facility] Comment on above: Performed By: #### C ELSCR, CRP #### [address] [place] [address] [place] [address] Anion gap [Moles/Vol] 9 mmol/L Normal 0-15 [facility] Comment on above: Performed By: #### C ELSCR, CRP #### [address] [place] [address] [place] [address] AST [Catalytic activity/Vol] 22 U/L Normal 14-40 [facility] Comment on above: Performed By: #### C ELSCR, CRP #### [facility] [address] [address] Bilirubin [Mass/Vol] 0.5 mg/dL Normal 0.2-1.3 [facility] Comment on above: Performed By: #### C ELSCR, CRP #### [facility] [address] [address] Calcium [Mass/Vol] 9.2 mg/dL Normal 8.5-10.2 [facility] Comment on above: Performed By: #### C ELSCR, CRP #### [address] [place] [address] [place] [address] Chloride [Moles/Vol] 103 mmol/L Normal 97-105 [facility] Comment on above: Performed By: #### C ELSCR, CRP #### [place] [address] CO2 [Moles/Vol] 26 mmol/L Normal 22-30 [facility] Comment on above: Performed By: #### C ELSCR, CRP #### [place] [address] Creatinine [Mass/Vol] 1.00 mg/dL Normal 0.73-1.22 [facility] Comment on above: Performed By: #### C ELSCR, CRP #### [place] [address] eGFR- Amer. >60 Normal [facility] Comment on above: Performed By: #### C ELSCR, CRP #### [place] [address] eGFR-All Other Races >60 Normal [facility] Comment on above: Result Comment: eGFR (Estimated GFR) Units of measure: mL/min/1.73 meters squared eGFR is derived from the reexpressed MDRD Study equation using the following parameters: serum creatinine, age, gender and race. The creatinine assay has been calibrated to be traceable to IDMS. An eGFR <60 mL/min/1.73m2 for >3 months is consistent with chronic kidney disease. Refer to KDOQI guidelines for clinical interpretation. In patients with unstable renal function, e.g. those with acute kidney injury, the eGFR may not accurately reflect actual GFR. Performed By: #### C ELSCR, CRP #### [address] [place] [address] [place] [address] Glucose [Mass/Vol] 100 mg/dL High 74-99 [facility] Comment on above: Performed By: #### C ELSCR, CRP #### [facility] [address] [place], [place] [address] Potassium [Moles/Vol] 3.9 mmol/L Normal 3.7-5.1 [facility] Comment on above: Performed By: #### C ELSCR, CRP #### [facility] [address] [place], [place] [address] Protein [Mass/Vol] 7.0 g/dL Normal 6.3-8.0 [facility] Comment on above: Performed By: #### C ELSCR, CRP #### [facility] [address] [place], [place] [address] Sodium [Moles/Vol] 138 mmol/L Normal 136-144 [facility] Comment on above: Performed By: #### C ELSCR, CRP #### [facility] [address] [place], [place] [address] Urea nitrogen [Mass/Vol] 8 mg/dL Low 9-24 [facility] Comment on above: Performed By: #### C ELSCR, CRP #### [facility] [address] [place], [place] [address] Comprehensive metabolic 2000 panelon 01-12-2021 Albumin [Mass/Vol] 4.4 g/dL 3.5 - 5.0 g/dL [facility] ALP [Catalytic activity/Vol] 80 U/L 38 - 113 U/L [facility] ALT [Catalytic activity/Vol] 18 U/L 10 - 54 U/L [facility] Anion gap [Moles/Vol] 9 mmol/L 0 - 15 mmol/L [facility] AST [Catalytic activity/Vol] 22 U/L 14 - 40 U/L [facility] Bilirubin [Mass/Vol] 0.5 mg/dL 0.2 - 1 .3 mg/dL [facility] Calcium [Mass/Vol] 9.2 mg/dL 8.5 - 10. 2 mg/dL [facility] Chloride [Moles/Vol] 103 mmol/L 97 - 10 5 mmol/L [facility] CO2 [Moles/Vol] 26 mmol/L 22 - 30 mmol/L [facility] Creatinine [Mass/Vol] 1.00 mg/dL 0.73 - 1.22 mg/dL [facility] GFR/1.73 sq M.predicted among blacks MDRD (S/P/Bld) [Vol rate/Area] mL/min/{1.73_m2} [facility] GFR/1.73 sq M.predicted among non-blacks MDRD (S/P/Bld) [Vol rate/Area] mL/min/{1.73_m2} [facility] Glucose [Mass/Vol] 100 mg/dL High 74 - 99 mg/dL [facility] Potassium [Moles/Vol] 3.9 mmol/L 3.7 - 5.1 mmol/L [facility] Protein [Mass/Vol] 7.0 g/dL 6.3 - 8.0 g/dL [facility] Sodium [Moles/Vol] 138 mmol/L 136 - 144 mmol/L [facility] Urea nitrogen [Mass/Vol] 8 mg/dL Low 9 - 24 mg/dL [facility] Laboratory - Chemistry and C hemistry - challengeon 01-12-2021 CRP [Mass/Vol] mg/L <0.9 mg/dL [facility] No Panel Informationon 01-12 [facility] PT panel Coag (PPP)on 2020 INR Coag (PPP) [Relative time] 0.9 {INR} 0.9 - 1.3 [facility] PT Coag (PPP) [Time] 10.4 s 9.7 - [address] [facility] Protimeon 01-12-2021 PT INR 0.9 Normal 0.9-1.3 [facility] Comment on above: Result Comment: Anushka min K Antagonist (VKA) Therapeutic Range: INR 2 to 3 (Target INR of 2.5) Note: For patients treated with VKA drugs, such as warfarin, the [employer] 2012 Guideline recommends a therapeutic INR range of 2 to 3 (target INR of 2.5). This recommendation includes high-risk patients with antiphospholipid syndrome with previous arterial or venous thromboembolism, current-generation mechanical or bioprosthetic aortic heart valve replacement. Note: Patients with mechanical aortic valve replacement and additional risk factors for thromboembolic events (atrial fibrillation, previous thromboembolism, LV dysfunction, hypercoagulable conditions) or an older generation mechanical AVR (i.e., ball in-Cage) or any mechanical MVR should have a INR therapeutic range of 2.5 to 3.5 (target INR of 3). Nuvia GH, et al. Chest 2012, 141:7S-47S Dejan RA, et al. [facility] 2017, 70: 252-289 Performed By: #### C ELSCR, CRP #### [facility] [employer] [address] [place], [place] [id number] PT Sec 10.4 sec Normal 9.7-13.0 [facility] Comment on above: Performed By: #### C ELSCR, CRP #### [facility] [employer] [address] [place], [place] [id number] XR ABDOMEN 1V SUPINEon 01-12 XR ABDOMEN 1V SUPINE * * *Final Report* * * DATE OF EXAM: Jan 12 2021 4:17PM SPX [id number] - XR ABDOMEN 1V SUPINE / PROCEDURE REASON: multiple diagnoses * * * * Physician Interpretation * * * * RESULT: EXAMINATION: XR ABDOMEN 1V SUPINE CLINICAL HISTORY: ASSESS STOOL BURDEN Abdominal pain, unspecified abdominal location Diarrhea, unspecified type Technique: XR ABDOMEN 1V SUPINE -- NOT APPLICABLE with 1 views on 2 images Comparison: None RESULT: Moderately excessive right and transverse colonic stool burden. No dilated bowel. Cholecystectomy clips. Lung bases are clear. Bony structures are intact. IMPRESSION: No dilated bowel. Moderate right and transverse colonic stool burden. Transcribed Using Voice Recognition Transcribe Date/Time: Jan 12 2021 4:44P Dictated by: LILLIAN GREWAL MD This examination was interpreted and the report reviewed and electronically signed by: LILLIAN GREWAL MD on Jan 12 2021 4:45PM EST [id number] N [facility] Vital Signs Date Time Vital Sign Value Performing Clinician Facility 07-16-2023 12:55-0400 Body height 172.72 cm Madisyn Botellomond Other [facility] Other 07-16-2023 12:55-0400 Body mass index (BMI) [Ratio] 24.11 kg/m2 Madisyn Lea Other [facility] Other 07-16-2023 12:55-0400 Body temperature 99.1 [degF] Madisyn Lea Other [facility] Other 07-16-2023 12:55-0400 Body weight 71.94 kg Madisyn Lea Other [facility] Other 07-16-2023 12:55-0400 Respiratory rate 18 /min Madisyn Lea Other [facility] Other 07-16-2023 12:55-0400 SaO2% (BldA) [Mass fraction] 92 % Madisyn Lea Other [facility] Other 01-12-2021 14:11-0400 Body height 170.2 cm Nieves Kenny MD Work Phone: [facility] 01-12-2021 14:11-0400 Body temperature 98.91 [degF] Nieves Kenny MD Work Phone: [facility] 01-12-2021 14:11-0400 Body weight 80.88 kg Nieves Kenny MD Work Phone: [facility] 01-12-2021 14:11-0400 Diastolic blood pressure 83 mm[Hg] Nieves Kenny MD Work Phone: [facility] 01-12-2021 14:11-0400 Heart rate 81 /min Nieves Kenny MD Work Phone: [facility] 01-12-2021 14:11-0400 Systolic blood pressure 146 mm[Hg] Nieves Kenny MD Work Phone: [facility] Encounters Encounter Date Encounter Type Care Provider Facility Start: 10-19-2023 End: 10-20-2023 ambulatory Tamanna A Marely TERRAZZO SUPERVISOR-C Facility: [facility] Start: 08-03-2023 ambulatory Tamanna A Marely TERRAZZO SUPERVISOR-C Facil ity:[facility] Start: 08-01-2023 End: 08-02-2023 ambulatory Tamanna A Marely TERRAZZO SUPERVISOR-C Facility: [facility] Start: 07-16-2023 End: 07-16-2023 ambulatory Madisyn Lea Other [facility] Other Start: 07-16-2023 Office outpatient ne w 20 minutes Madisyn Lea [facility] Start: 02-15-2023 End: 02-16-2023 ambulatory Tamanna A Marely TERRAZZO SUPERVISOR-C Facility: [facility] Start: 01-13-2023 End: 01-13-2023 ambulatory Tamanna A Marely TERRAZZO SUPERVISOR-C Facility:[facility] Start: 01-11-2023 End: 01-12-2023 ambulatory Tamanna A Marely TERRAZZO SUPERVISOR-C Facility: [facility] Start: 06-11-2021 End: 06-11-[address] MARSHAL GALAN Facility: Start: 01-12-2021 End: 01-12-2021 Patient encounter procedure Nieves Kenny MD Work Phone: Gastroenterology Comment on above: Abdominal pain, unsp ecified abdominal location (Primary Dx); Diarrhea, unspecified type; Overflow diarrhea Start: 01-12-2021 End: 01-12-2021 Telephone encounter Nieves Kenny MD Work Phone: Gastroenterology Comment on above: Request Outside [facility] Records (Dr. Frances and [facility]/Dr. Eldridge) Start: 12-26-2020 End: 12-26-2020 Patient encounter procedure Nieves Kenny Work Phone: [facility] Start: 12-26-2020 Results Only Nieves calvin Work Phone: Gastroenterology Procedures Date Procedure Procedure Detail Performing Clinician Start: 12-26-2020 PT ED PATIENT INFORMATION Nieves Kenny Work Phone: Plan of Treatment Date Care Activity Detail Author Start: 05-19-2021 Influenza vaccination INFLUENZA (Sea son Ended) [facility] Start: [address]EN LIPID SCREEN [facility] Start: 2002 Urine microalbumin profile DTAP,TDAP ,TD (1 - Tdap) [facility] Start: 2001 HEPATITIS C SCREENING HEPATITIS C SC REENING [facility] Start: 2001 HIV SCREENING HIV SCREENING [facility] Start: [facility] Calprotectin [Mass/m ass] in Stool CALPROTECTIN,FECAL Lab Routine Abdominal pain, unspecified abdominal location Diarrhea, unspecified type Ordered: 01/12/2021 [facility] Comment on above: Ordered: 01/12/2021 CELIAC SCREEN WITH REFLEX CELIAC SCREEN WITH REFLEX Lab Routine Abdominal pain, unspecified abdominal location Diarrhea, unspecified type 01/12/2021 3:[address] [facility] End: 01-12-2022 ECG COMPLETE ECG COMPLETE ECG Routine Abdominal pain, unspecified abdominal location Diarrhea, unspecified type 1 Occurrences starting 01/12/2021 until 01/12/2022 [facility] Comment on above: 1 Occurrences starti ng 01/12/2021 until 01/12/2022 PH, FECAL PH, FECAL Lab Ro utine Abdominal pain, unspecified abdominal location Diarrhea, unspecified type Ordered: 01/12/2021 [facility] Comment on above: Ordered: 01/12/2021 POTASSIUM STOOL POTASSIUM STOOL Lab Routine Abdominal pain, unspecified abdominal location Diarrhea, unspecified type Ordered: 01/12/2021 [facility] Comment on above: Ordered: 01/12/2021 PT ED PATIENT INFORMATION PT ED PATIENT INFORMATION Other 12/26/2020 [facility] SODIUM, STOOL SODIUM, STOOL La b Routine Abdominal pain, unspecified abdominal location Diarrhea, unspecified type Ordered: 01/12/2021 [facility] Comment on above: [facility] Date Payer Category Payer Private Health Insurance 2023 Unknown [id number] 2022 Medicaid [id number] 2020 Unknown [employer]ERRICK [employer]UE CARD PPO [id number] 2020-Present PPO [id number] 1983 Unknown [id number] 93 1983 Unknown [id number] 18 1983 Unknown [id number] 18 1983 Unknown [id number] 18 1983 Unknown [id number] 18 1983 Unknown [id number] 18 1983 Unknown [id number] 18 1959 Self-pay [id number] Social History Date Type Detail Facility Tobacco smoking status [facility] Unknown if ever smoked [facility] Start: 1985 Sex Assigned At Not on file [facility] Start: 01-12-2021 Tobacco smoking status CAIS Current every day smoker [facility] History of tobacco use Cigarette Smoker [facility] Start: 01-12-2021 Tobacco use and exposure Current user [facility] Exposure to SARS-CoV-2 (event) Not sure [facility] Sex Assigned At Sex Assigned At [facility] Other Evaluation note 07-16-2023 Note Date & Type Note Facility 07-16-2023 Evaluation note Encounter Date Diagnosis Assessment Notes Jun, Moderate asthma with exacerbation, unspecified whether persistent (ICD-10 - J45.901) Drink plenty fluids, get plenty of rest. Take the Medrol Dosepak as prescribed. Take the Tessalon Perles as prescribed as needed for cough. Continue breathing treatments as prescribed. Follow-up with your family physician if no improvement in 2 to 3 days. Go to the ER for worsening symptoms or concerns [facility] Other Progress note 01-29-2021 Note Date & Type Note Facility 01-29-2021 Note HNO ID: [id number] Author: Nieves Kenny MD Service: ? Author Type: Physician Type: Progress Notes Filed: 01/29/2021 12:39 PM Note Text: DEPARTMENT OF GASTROENTEROLOGY AND HEPATOLOGY [facility] VIRTUAL VISIT Patient: Isiah Martinez Medical Record: [id number] Reason for visit: Chronic constipation Subjective HPI Isiah Martinez is a 35 year old male with a past medical history significant for cholecystectomy and asthma, who presented for a virtual gastroenterology clinic visit for constipation with overflow diarrhea. He was found to have a large stool burden on KUB, such that he was instructed to do a bowel clean out with titrated miralax thereafter. Initially did well after the clean out, but started with QID miralax which was too much. He backed down to one miralax capful daily, which was not enough. He has not stopped miralax, and is now backed up again with straining, incomplete evacuation and abdominal cramping. No overt GI bleeding. Review Of Systems Positives as noted in HPI. All other systems were reviewed and negative. Past Medical, Surgical, Family and Social Histories No past medical history on file. No past surgical history on file. Current Outpatient Medications Medication Sig Dispense Refill - albuterol HFA (PROAIR HFA) 90 mcg/actuation inhaler Inhale 2 Puffs as instructed as needed. No current facility-administered medications for this visit. ALLERGIES Not on File No family history on file. Social History Tobacco Use - Smoking status: Current Every Day Smoker Types: Cigarettes - Smokeless tobacco: Current User Substance Use Topics - Alcohol use: Not on file - Drug use: Not on file Objective Physical Exam VS deferred as visit conducted virtually. Gen: NAD, smiling and interactive HEENT: MMM, no scleral icterus Lungs: Breathing unablored CVS: No JVD appreciated Abd: NT to patient palpation Ext: No UE edema, full ROM Skin: No rashes appreciated Neuro: AOx3, Moving upper ext Labs and Imaging CBC Latest Ref Rng AND Units 01/12/2021 WBC 3.70 - 11.00 k/uL 9.13 RBC 4.20 - 6.00 m/uL 5.39 HEMOGLOBIN 13.0 - 17.0 g/dL 16.6 HEMATOCRIT 39.0 - 51.0 % 49.5 MCV 80.0 - 100.0 fL 91.8 MCH 26.0 - 34.0 pG 30.8 MCHC 30.5 - 36.0 g/dL 33.5 RDW-CV 11.5 - 15.0 % 12.7 PLATELETS 150 - 400 k/uL 228 MPV 9.0 - 12.7 fL 11.2 BASO% % 0.9 ABS NEUT (ANC) 1.45 - 7.50 k/uL 5.64 ABS LYMPH 1.00 - 4.00 k/uL 1.94 ABS MONO <0.87 k/uL 0.99(H) ABS EOSIN <0.46 k/uL 0.48(H) ABS BASO <0.11 k/uL 0.08 DIFF TYPE - Auto Diff CMP Latest Ref Rng AND Units 01/12/2021 SODIUM 136 - 144 mmol/L 138 POTASSIUM 3.7 - 5.1 mmol/L 3.9 CHLORIDE 97 - 105 mmol/L 103 CO2 22 - 30 mmol/L 26 GLUCOSE 74 - 99 mg/dL 100(H) BUN 9 - 24 mg/dL 8(L) CREATININE 0.73 - 1.22 mg/dL 1.00 EGFR-ALL OTHER RACES . >60 EGFR- - >60 PROTEIN, TOTAL 6.3 - 8.0 g/dL 7.0 ALBUMIN 3.5 - 5.0 g/dL 4.4 CALCIUM, TOTAL 8.5 - 10.2 mg/dL 9.2 BILIRUBIN, TOTAL 0.2 - 1.3 mg/dL 0.5 AST 14 - 40 U/L 22 ALT 10 - 54 U/L 18 ALKALINE PHOSPHATASE 38 - 113 U/L 80 PT INR Date Value Ref Range Status 01/12/2021 0.9 0.9 - 1.3 Final Comment: Vitamin K Antagonist (VKA) Therapeutic Range: INR 2 to 3 (Target INR of 2.5) Note: For patients treated with VKA drugs, such as warfarin, the [place] [employer] 2012 Guideline recommends a therapeutic INR range of 2 to 3 (target INR of 2.5). This recommendation includes high-risk patients with antiphospholipid syndrome with previous arterial or venous thromboembolism, current-generation mechanical or bioprosthetic aortic heart valve replacement. Note: Patients with mechanical aortic valve replacement and additional risk factors for thromboembolic events (atrial fibrillation, previous thromboembolism, LV dysfunction, hypercoagulable conditions) or an older generation mechanical AVR (i.e., ball in-Cage) or any mechanical MVR should have a INR therapeutic range of 2.5 to 3.5 (target INR of 3). Nuvia GH, et al. Chest 2012, 141:7S-47S Dejan RA, et al. [facility] 2017, 70: 252-289 Component Latest Ref Rng AND Units 01/12/2021 IgA 70 - 400 mg/dL 257 Transglutaminase Ab, IgA <20 Units 5 Interpretation (Celiac Screen) No serologic evidence of celiac disease. No serologic evidence of celiac disease. CRP <0.9 mg/dL <0.3 KUB 12/2020 IMPRESSION: No dilated bowel. ?Moderate right and transverse colonic stool burden. GI procedures reviewed EGD 10/2018 --LA grade A esophagitis (biopsies unremarkable) --Stomach, duodenum unremarkable ? Colonoscopy 11/2017 --Hemorrhoids --ileum and colon otherwise unermarkable --Random biopsies obtained for microscopic colitis (biopsies unremarkable) Assessment Assessment and Recommendations Isiah Martinez is a 35 year old male with a past medical history significant for cholecystectomy and asthma, who (more content not included)... [facility] Progress note 01-12-2021 Note Date & Type Note Facility 01-12-2021 Note HNO ID: [id number] Author: RT Danny(R) Service: Radiology Author Type: Manager Express Type: Progress Notes Filed: 01/12/2021 4:18 PM Note Text: Radiology Service Progress Note PATIENT NAME: Isiah Martinez DATE OF SERVICE: January 12, 2021 TIME: 4:18 PM PATIENT IDENTITY VERIFICATION COMPLETED USING TWO (2) IDENTIFIERS: Name and Date of confirmed by patient verbally and Name and Date of confirmed by identification band. FALL SCREENING: Has the patient had 2 falls in the last year or 1 fall with injury or currently using an Ambulatory Assistive Device (Walker, Cane, Wheelchair, Crutches, etc.)? No PATIENT GENDER DATA: Male PATIENT RELEVANT IMPLANT DATA REVIEWED: Not Applicable RADIOLOGY DEPARTMENT: General X-ray: Exam(s) Completed: Abdomen X-Ray: Abdomen PERIPHERAL IV DATA: Not applicable SIGNED BY: RT Danny(R) January 12, 2021 4:18 PM [facility] Clinical Note 01-12-2021 Note Date & Type Note Facility 01-12-2021 Note HNO ID: [id number] Author: Tamanna Moore RN Service: Cardiovascular Medicine Author Type: Registered Nurse Type: Nursing Progress Note Filed: 01/12/2021 3:55 PM Note Text: EKG completed [facility] Progress note 01-12-2021 Note Date & Type Note Facility 01-12-2021 Note HNO ID: [id number] Author: Nieves Kenny MD Service: ? Author Type: Physician Type: Progress Notes Filed: 01/12/2021 3:11 PM Note Text: DEPARTMENT OF GASTROENTEROLOGY AND HEPATOLOGY [facility] Patient: Isiah Martinez Medical Record: [id number] Reason for visit: Chronic diarrhea Subjective HPI Isiah Martinez is a 35 year old male with a past medical history significant for cholecystectomy and asthma, who presented to gastroenterology clinic for chronic diarrhea. He was accompanied by his . Reported 10+ years chronic diarrhea associated with fecal urgency and epigastric abdominal cramping. His abdominal pain intensifies leading up to defecation, after which his symptoms improve. He endorsed straining and incomplete evacuation. Has 0-10 BMs daily, typically bristol 6-7. Symptoms interfere with his daily activities -- he is afraid to be away from a WR. Endorsed some bleeding on the tissue when wiping, previously attributed to hemorrhoids. No steatorrhea. He tried a gluten free diet for a year without improvement, such that he is now on a regular diet. No routine medications. Tried Viberzi without improvement. Recently underwent cholecystectomy, which did not improve his symptoms. Extensive evaluation at [facility], including EGD/colonoscopy and extensive radiographic imaging. Endorsed heartburn exacerbated by albuterol, not previously treated. He does not feel his heartburn is severe enough to warrant therapy. Denied fevers, chills, dysphagia, bowel changes, melena, weight loss. No FHx of IBD. Maternal grandfather with pancreatic ca. Currently smokes tobacco, denied alcohol use. Has used mariajuana for the past year. Review Of Systems Positives as noted in HPI. All other systems were reviewed and negative. Past Medical, Surgical, Family and Social Histories No past medical history on file. No past surgical history on file. Current Outpatient Medications Medication Sig Dispense Refill - albuterol HFA (PROAIR HFA) 90 mcg/actuation inhaler Inhale 2 Puffs as instructed as needed. No current facility-administered medications for this visit. ALLERGIES Not on File No family history on file. Social History Tobacco Use - Smoking status: Current Every Day Smoker Types: Cigarettes - Smokeless tobacco: Current User Substance Use Topics - Alcohol use: Not on file - Drug use: Not on file Objective Physical Exam BP 146/83 Pulse 81 Temp 98.9 Ht 5' 7 (1.70m) Wt 178 lb 4.8 oz (80.9kg) BMI 27.92 kg/(m2). Gen: NAD, AOx3 HEENT: MMM Lungs: Wheezes ULs CVS: RRR, no m/r/g Abd: Soft, NT/ND, nl BS, small surgical scar c/d/i Ext: No LE edema, full ROM Skin: Warm and dry Neuro: Moving all ext Labs and Imaging None GI procedures reviewed None Assessment Assessment and Recommendations Isiah Martinez is a 35 year old male with a past medical history significant for cholecystectomy and asthma, who presented to gastroenterology clinic for chronic diarrhea. Reported straining and incomplete evacuation suggestive of possible overflow diarrhea. Differential includes IBS, IBD, dyssynergia, functional disease, etc. Less likely bile acid diarrhea as symptoms pre-date cholecystectomy. Review of extensive prior evaluation needed to direct further assessment. # Abdominal Pain # Suspected Overflow Diarrhea --Send routine labs, celiac screen, CRP --Fecal calprotectin, stool lytes, stool ph --KUB --Baseline EKG --Request for outside records submitted by application support intern --Rtc 4 weeks for visit Nieves Kenny MD Staff, Gastroenterology [facility] Note 01-12-2021 Telephone Encounter - Otilia Trevino RN - 01/12/2021 4:10 PM EDTTelephone Encounter - Otilia Trevino RN - 01/12/2021 4:08 PM EDT Note Date & Type Note Facility 01-12-2021 Miscellaneous Notes Called [facility]/Dr. Marlon Eldridge at [phone]. Left voice message - request call back for their fax # so that consent form can be faxed over. Awaiting call back. Signed consent form faxed to Dr. Abigail Frances at [phone]. Consent form scanned in [employer]. documented in this encounter [facility] History of Present illness Narrative 01-12-2021 Nieves Kenny MD - 01/12/2021 2:23 PM EDT Note Date & Type Note Facility 01-12-2021 History of Presen t illness Narrative Images from the original note were not included. DEPARTMENT OF GASTROENTEROLOGY AND HEPATOLOGY [facility] Patient: Isiah Martinez Medical Record: [id number] Reason for visit: Chronic diarrhea Subjective HPI Isiah Martinez is a 35 year old male with a past medical history significant for cholecystectomy and asthma, who presented to gastroenterology clinic for chronic diarrhea. He was accompanied by his . Reported 10+ years chronic diarrhea associated with fecal urgency and epigastric abdominal cramping. His abdominal pain intensifies leading up to defecation, after which his symptoms improve. He endorsed straining and incomplete evacuation. Has 0-10 BMs daily, typically bristol 6-7. Symptoms interfere with his daily activities -- he is afraid to be away from a WR. Endorsed some bleeding on the tissue when wiping, previously attributed to hemorrhoids. No steatorrhea. He tried a gluten free diet for a year without improvement, such that he is now on a regular diet. No routine medications. Tried Viberzi without improvement. Recently underwent cholecystectomy, which did not improve his symptoms. Extensive evaluation at [facility], including EGD/colonoscopy and extensive radiographic imaging. Endorsed heartburn exacerbated by albuterol, not previously treated. He does not feel his heartburn is severe enough to warrant therapy. Denied fevers, chills, dysphagia, bowel changes, melena, weight loss. No FHx of IBD. Maternal grandfather with pancreatic ca. Currently smokes tobacco, denied alcohol use. Has used mariajuana for the past year. Review Of Systems Positives as noted in HPI. All other systems were reviewed and negative. Past Medical, Surgical, Family and Social Histories No past medical history on file. No past surgical history on file. Current Outpatient Medications Medication Sig Dispense Refill albuterol HFA (PROAIR HFA) 90 mcg/actuation inhaler Inhale 2 Puffs as instructed as needed. No current facility-administered medications for this visit. ALLERGIES Not on File No family history on file. Social History Tobacco Use Smoking status: Current Every Day Smoker Types: Cigarettes Smokeless tobacco: Current User Substance Use Topics Alcohol use: Not on file Drug use: Not on file Objective Physical Exam BP 146/83 Pulse 81 Temp 98.9 Ht 5' 7 (1.70m) Wt 178 lb 4.8 oz (80.9kg) BMI 27.92 kg/(m^2). Gen: NAD, AOx3 HEENT: MMM Lungs: Wheezes ULs CVS: RRR, no m/r/g Abd: Soft, NT/ND, nl BS, small surgical scar c/d/i Ext: No LE edema, full ROM Skin: Warm and dry Neuro: Moving all ext Labs and Imaging None GI procedures reviewed None Assessment Assessment and Recommendations Isiah Martinez is a 35 year old male with a past medical history significant for cholecystectomy and asthma, who presented to gastroenterology clinic for chronic diarrhea. Reported straining and incomplete evacuation suggestive of possible overflow diarrhea. Differential includes IBS, IBD, dyssynergia, functional disease, etc. Less likely bile acid diarrhea as symptoms pre-date cholecystectomy. Review of extensive prior evaluation needed to direct further assessment. # Abdominal Pain # Suspected Overflow Diarrhea --Send routine labs, celiac screen, CRP --Fecal calprotectin, stool lytes, stool ph --KUB --Baseline EKG --Request for outside records submitted by application support intern --Rtc 4 weeks for visit Nieves Kenny MD Staff, Gastroenterology documented in this encounter [facility] Evaluation note Note Date & Type Note Facility Evaluation note Diagnosis Abdominal pain, unspecified abdominal location- Primary Diarrhea, unspecified type Overflow diarrhea Diarrhea documented in this encounter [facility] History general Narrative - Reported Note Date & Type Note Facility History general Narrative - Reported Type Medical History asthma Surgical History APPENDECTOMY Surgical History GALL [employer] Other Summary Purpose Family History No Family History Records FoundNo Family History Records FoundNo Family History Records FoundNo Family History Records Found Advance Directives No Advanced Directives Records FoundNo Advanced Directives Records FoundNo Advanced Directives Records FoundNo Advanced Directives Records Found Additional Source Comments Source Comments (unrecognize d section and content) In the event this informatio n is protected by the Federal Confidentiality of Alcohol and Drug Abuse Patient Records regulations: The Federal rules restrict any use of the information to criminally investigate or prosecute any alcohol or drug abuse patient.[facility] the event this information is protected by the Federal Confidentiality of Alcohol and Drug Abuse Patient Records regulations: The Federal rules restrict any use of the information to criminally investigate or prosecute any alcohol or drug abuse patient.[facility] the event this information is protected by the Federal Confidentiality of Alcohol and Drug Abuse Patient Records regulations: The Federal rules restrict any use of the information to criminally investigate or prosecute any alcohol or drug abuse patient.[facility] Reason for Visit (unrecogniz ed section and content) Reason Comments New Patient PCP referral - diarr hea 4-5x/wk for 15 yrs. Constant abdominal pain and nausea, no vomiting. Appendix removed 10 yrs ago. GB removed 2018 Reason Comments Request Outside Medical Records Dr. Troy jose and [facility]/Dr. Eldridge (unrecognized sect ion and content) No Status Records FoundNo Status Records FoundNo Status Records FoundNo Status Records Found INFORMATION SOURCE (unrecogn ized section and content) DATE CREATED AUTHOR 01/14/2021 [facility] DATE CREATED AUTHOR AUTHOR'S ORGANIZ ATION 06/26/2021 [facility] DATE CREATED AUTHOR AUTHOR'S ORGANIZ ATION 10/18/2021 [facility] DATE CREATED AUTHOR AUTHOR'S ORGANIZ ATION 10/20/2023 [facility] FOR RECORDS PERTAINING TO PATIENTS WHO ARE OR HAVE BEEN ENROLLED IN A CHEMICAL DEPENDENCY/SUBSTANCEABUSE PROGRAM, SOME INFORMATION MAY BE OMITTED. This clinical summary was aggregated from multiple sources. Caution should be exercised in using it in the provision of clinical care. This summary normalizes information from multiple sources, and as a consequence, information in this document may materially change the coding, format and clinical context of patient data. In addition, data may be omitted in some cases. CLINICAL DECISIONS SHOULD BE BASED ON THE PRIMARY CLINICAL RECORDS. [employer] [facility]. provides no warranty or guarantee of the accuracy or completeness of information in this document.
[2023-10-23 09:22] LABS: Hemoglobin 16.3 g/dL (14.0-18.0)
--- NOTE | 2023-10-23 10:14 | RT_ITS ---
[facility] Test Date: 2023-10-23 Pat Name: DIONNE MARTINEZ Department: Room: - Gender: Male House Carpenter: Lyle Eckert RRT : 1985 Requested By: Roosevelt Ramirez Order Number: [id number] Reading MD: Roosevelt Ramirez Interpretive Statements Pulmonary function testing was completed according to ATS criteria. Findings were considered accurate and reproducible. Both pre- and post-bronchodilator values utilized for spirometry. Due to software limitations, no prior studies are inaccessable to me for comparison. Spirometry (based on pre-bronchodilator values): -FEV1/FVC: Reduced @ 67% -FEV1: Normal @ 93% -FVC: Normal @ 11% -There is a positive bronchodilator response in FEV1. Lung volumes by plethysmography: -RV: Normal @ 111% -TLC: Normal @ 109% Diffusion capacity: -DLCO: Normal @ 122% when corrected for Hb 16.3g/dL Flow-volume loop: -Mild obstructive pattern Flow-pressure loop: ???Asthmatic pattern Impressions: -Spirometry suggests mild obstruction. There is a positive bronchodilator response. Lung volumes are normal. The diffusion capacity is normal. Overall study is compatible with asthma. Clinical correlation required. Electronically Signed On 10-25-2023 7:43:31 EST by Roosevelt Ramirez
[2023-10-23] MEDS: ALBUTEROL SULFATE 2.5 MG/3 ML VIAL NEB IH (10:15)
== END 2023-10-23 09:10 | disposition home or self-care (01) ==
LOC: CARD 09:10
PROVIDERS: Visit Provider Internal Medicine
DX: J45.40 Moderate persistent asthma, uncomplicated (principal)
CPT/HCPCS: 36415; 85018; 94060; 94726; 94729

== ENCOUNTER 2024-05-03 20:15 | Emergency (ER) | payer OTHER, BC, MEDICAID, SELFPAY ==
[2024-05-03 20:21] VITALS: BP 155/95; PULSE 75; TEMP 36.7; O2SAT 97; BMI 25.1
--- OUTSIDE RECORDS SUMMARY | 2024-05-03 20:21 | XMS_ITS | CCD ---
Author Organization [facility] Care Team Providers Care Purchasing Manager/Sales Name Role Phone Unavailable Primary Care Provider Unavailabl e PAY, DR ARAYA Attending Unavailable PAY, DR ARAYA Consulting Unavailable PAY, DR ARAYA Admitting Unavailable MARELY, TAMANNA Primary Care Unavailable Leonora, Madisyn Unavailable MARELY, TAMANNA Primary Care Unavailable ANGI SILVESTRE Attending Unavailable ANGI SILVESTRE Attending Unavailable ANGI SILVESTRE Referring Unavailable MARELY, TAMANNA Primary Care Unavailable NOCESAR BRAUN Referring Unavailable MARELY, TAMANNA Primary Care Unavailable SAPORITA, MARCUS L Referring Unavailable MARELY, TAMANNA Primary Care Unavailable MARELY, TAMANNA Referring Unavailable MARELY, TAMANNA Primary Care Unavailable SAPORITA, MARCUS L Referring Unavailable MARELY, TAMANNA Primary Care Unavailable MARELY, TAMANNA Referring Unavailable MARELY, TAMANNA Primary Care Unavailable Marely STOREKEEPER STEWARD-C, Tamanna A Primary Care Unavailable Marely STOREKEEPER STEWARD-C, Tamanna A Attending Unavailable Marely STOREKEEPER STEWARD-C, Tamanna A Admitting Unavailable Marely STOREKEEPER STEWARD-C, Tamanna A Attending Unavailable Marely STOREKEEPER STEWARD-C, Tamanna A Primary Care Unavailable Marely STOREKEEPER STEWARD-C, Tamanna A Attending Unavailable Marely STOREKEEPER STEWARD-C, Tamanna A Primary Care Unavailable Marely STOREKEEPER STEWARD-C, Tamanna A Attending Unavailable Marely STOREKEEPER STEWARD-C, Tamanna A Primary Care Unavailable Marely STOREKEEPER STEWARD-C, Tamanna A Attending Unavailable Marely STOREKEEPER STEWARD-C, Tamanna A Primary Care Unavailable Marely STOREKEEPER STEWARD-C, Tamanna A Attending Unavailable Marely STOREKEEPER STEWARD-C, Tamanna A Primary Care Unavailable Allergies Allergy Classification Reported Allergen(s) Allergy Type Date of Onset Reaction(s) Facility (3 sources) Morphine; Translations: [MORPHINE] Drug Allergy 02-18-2014 [facility] Repository (1 source) Morphine Drug Allergy itches Desktone Other Medications Current Medications Medication Drug Class(es) [...] pain; Translations: [Unspecified abdominal pain] Episodic Asthma (2 sources) Unspecified asthma with (acute) exacerbation; Translations: [Moderate persistent asthma, uncomplicated] Onset: 10-30-2023 Chronic E Codes: Natural/environment (1 source) Bitten by squirrel, initial encounter; Translations: [Bitten by squirrel, initial encounter] Onset: 12-15-2023 Episodic Gastrointestinal hemorrhage (1 source) Hematochezia; Translations: [Melena] Episodic Open wounds of extremities (1 source) Open bite of right thumb without damage to nail, initial encounter; Translations: [Open bite of right thumb without damage to nail, initial encounter] Onset: 12-15-2023 Episodic Other gastrointestinal disorders (1 source) Irritable bowel syndrome with diarrhea; Translations: [Irritable bowel syndrome with diarrhea] Chronic Other gastrointestinal disorders (2 sources) Diarrhea; Translations: [Diarrhea, unspecified] Episodic Other gastrointestinal disorders (1 source) Spurious diarrhea - overflow; Translations: [Diarrhea, unspecified] Episodic Other injuries and conditions due to external causes (1 source) Injury, unspecified, initial encounter; Translations: [Injury, unspecified, initial encounter] Onset: 12-11-2023 Episodic Other injuries and conditions due to external causes (1 source) Other injury of unspecified body region, initial encounter; Translations: [Other injury of unspecified body region, initial encounter] Onset: 11-29-2023 Episodic Other lower respiratory disease (1 source) Other nonspecific abnormal finding of lung field; Translations: [Other nonspecific abnormal finding of lung field] Onset: 10-30-2023 Episodic Other lower respiratory disease (1 source) Other forms of dyspnea; Translations: [Other forms of dyspnea] Onset: 10-30-2023 Episodic Other nutritional; endocrine; and metabolic disorders (1 source) Body mass index 25-29 - overweight; Translations: [Body mass index (BMI) 26.0-26.9, adult] Episodic Sprains and strains (1 source) Lumbar sprain; Translations: [Sprain of ligaments of lumbar spine, initial encounter] Episodic Unclassified (3 sources) CONTACT W/AND (SUSP) EXPOS COVID-19; Translations: [CONTACT W/AND (SUSP) EXPOS COVID-19] Onset: 06-25-2021 Unclassified (2 sources) Animal Bite Onset: 11-29-2023 Past or Other Problems Problem Classification Problem Date Documented Da te Episodic/Chronic Unclassified (1 source) CONTACT W/AND (SUSP) EXPOS COVID-19; Translations: [CONTACT W/AND (SUSP) EXPOS COVID-19] Onset: 06-11-2021 Results Test Name Value Interpretation Reference Range Facility BASIC METABOLIC PANLon 12-13 Anion gap [Moles/Vol] 3 mmol/L Low 5-15 [facility] Comment on above: Performed By: #### B MP #### [facility] ([id number]) [address] [place] [address], [place] [address] Calcium [Mass/Vol] 8.7 mg/dL Normal 8.5-10.5 [facility] Comment on above: Performed By: #### B MP #### [facility] ([id number]) [address] [place] [address] Chloride [Moles/Vol] 105 mmol/L Normal 98-109 [facility] Comment on above: Performed By: #### B MP #### [facility] ([id number]) [address] [place] [address] CO2 [Moles/Vol] 26 mmol/L Normal 22-32 [facility] Comment on above: Performed By: #### B MP #### [facility] ([id number]) [address] [place] [address] Creatinine [Mass/Vol] 1.07 mg/dL Normal 0.70-1.20 [facility] Comment on above: Result Comment: METH OD TRACEABLE TO IDMS STANDARD Performed By: #### B MP #### [facility] ([id number]) [address] [place] [address] GFR/1.73 sq M.predicted among non-blacks MDRD (S/P/Bld) [Vol rate/Area] 90 mL/min/{1.73_m2} Normal >59 [facility] Comment on above: Result Comment: Reported eGFR is based on the CKD-EPI 1 equation that does not use a race coefficient. Performed By: #### B MP #### [facility] ([id number]) [address] [place] [address] Glucose [Mass/Vol] 105 mg/dL High 65-99 [facility] Comment on above: Performed By: #### B MP #### [facility] ([id number]) [address] [place] [address] Potassium [Moles/Vol] 3.5 mmol/L Normal 3.5-5.0 [facility] Comment on above: Performed By: #### B MP #### [facility] ([id number]) [address] [place] [address] Sodium [Moles/Vol] 134 mmol/L Normal 134-146 [facility] Comment on above: Performed By: #### B MP #### [facility] ([id number]) [address] [place] [address] Urea nitrogen [Mass/Vol] 14 mg/dL Normal 5-23 [facility] Comment on above: Performed By: #### B MP #### [facility] ([id number]) [address] [place] [address] XR FINGER THUMB RT MIN 2 VWS on 12-11-2023 XR FINGER THUMB RT MIN 2 VWS XR FINGER THUMB RT MIN 2 VWS *ADDENDUM*Addendum correction: The area concern involving the distal phalanx of the thumb is likely a nutrient foramen particularly since the patient's asymptomatic dislocation. In addition there is soft tissue swelling around the MTP joint concerning for cellulitis. There is no soft tissue gas no radiopaque foreign body Finalized by Evan Mercedes MD on 12/11/2023 11:27 AM Normal [facility] XR FINGER THUMB RT MIN 2 VWS on 11-29-2023 XR FINGER THUMB RT MIN 2 VWS XR FINGER THUMB RT MIN 2 VWS X-ray finger thumb right minimum 2 views. History of animal bite 3 images. COMPARISON: None IMPRESSION: Anatomic alignment. There is no evidence of occult fracture or dislocation. If concern for infection develops consider subsequent MR imaging. Finalized by Zonia Good MD on 11/29/2023 4:46 PM Normal [facility] 11-13-2023 Outside Records [id number]#1. 00[facility] 11-03-2023 Outside Records [id number] #1.00[facility] CT CHEST WO CONTon CT CHEST WO CONT CT CHEST WO CONT CT CHEST WO CONT HISTORY: Abnormal CT scan, exertional dyspnea, moderate persistent asthma. COMPARISON: 08/07/2023 CT, 06/28/2020 radiographs. TECHNIQUE: Multidetector axial CT Chest performed without IV contrast. Sagittal and coronal 2-D reconstructed images were also obtained. Automated exposure control was utilized. All CT scans at this facility use dose modulation, iterative reconstruction, and/or weight based dosing when appropriate to reduce radiation dose to as low as reasonably achievable. FINDINGS: Pulmonary nodules: Right lower lobe 3 mm solid pulmonary nodule (axial series 2 image 77),decreased from 4 mm in prior study. A 4 mm right upper lobe nodule versus lymph node along the right horizontal fissure (series 2 image 65) is unchanged from prior study, likely intrapulmonary lymph node. Lungs: Interval resolution of left upper lobe focal groundglass consolidation seen on 08/07/2023 CT. No focal consolidation. No pneumothorax or pleural effusion. Airways are patent without filling defect. Right superior accessory fissure noted, normal anatomic variant. Lymph nodes: No axillary, mediastinal, or hilar lymphadenopathy. Heart and mediastinum: No cardiomegaly or pericardial effusion. No aneurysmal dilatation. No significant coronary artery calcifications. Pulmonary arteries within normal limits in regards to size. Upper abdomen: Gallbladder surgically absent. Splenic calcifications noted . Bones: No acute osseous abnormality. IMPRESSION: * Interval resolution of left upper lobe groundglass opacity, in keeping with prior infectious/inflammato ry etiology. * Otherwise no acute process of the chest. Approved by Resident Ceaasr Ernst MD on 10/31/2023 10:46 AM Allen Mason have personally reviewed the image(s) and agree with and/or edited the report Finalized by Allen Davidson on 10/31/2023 4:41 PM Normal [facility] 10-16-2023 Outside Records [id number]#1 .00OTGTIFF Normal [facility] 09-14-2023 Outside Records [id number]#1. 00OTGTIFF Normal [facility] 12-05-2023 Outside Records [id number] #1.00[facility] Rad - Other Radiology Report on 08-21-2023 Rad - Other Radiology Report [id number]# 1.[facility]-17-2023 Outside Records [id number]#1 .[facility] 08-16-2023 Outside Records [id number]#1. [facility] 08-14-2023 Outside Records [id number] #1.00[facility] 08-07-2023 Outside Records [id number]#1 .[facility] 07-26-2023 Outside Records [id number] #1.00[facility] SARS-CoV-2 (COVID-19) RNA MAYRA+probe Ql (Unsp spec) Not detected Normal NOT DETECTED [facility] Comment on above: Result Comment: This test is not yet approved or cleared by the [place] FDA. When there are no FDA-approved or cleared tests available, and other criteria are met, FDA can make tests available under an emergency access mechanism called an Emergency Use Authorization (EUA). The EUA for this test is supported by the Coding File Clerk of Health and Human Service's (HHS's) declaration [...] Performed By: #### C AMINA, JAXSONS #### [facility] [address] [place] [address] Dr. Kellie Raya SYMPTOMATIC COVID-19 ANTIGEN on 06-11-2021 EUA Statement SEE BELOW Normal [facility] Comment on above: Result Comment: This [...] is revoked sooner. Performed By: #### C AMINA, JAXSONS #### [facility] [address] [place] [address] Dr. Kellie Raya SARS-CoV-2 (COVID-19) RNA MAYRA+probe Ql (Unsp spec) Negative Normal NEGATIVE [facility] Comment on above: Result Comment: CONF IRMATION BY PCR PENDING PER CDC GUIDELINES/ SYMPTOMATIC PATIENT. Performed By: #### C AMINA, JAXSONS #### [facility] [address] [address] [address] Kellie Crystal 04-02-2021 JOVANY Telephone ([facility]) ISIAH MARTINEZ ([id number]) 1985 M Date Time Provider Department 04/02/21 NIEVES KENNY [facility] During your visit today, we recorded the following information about you: Nieves Kenny MD 04/02/2021 11:46 AM Signed No show for virtual visit. Unable to reach patient by phone. 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 Problem List As Of Date: 04/02/2021 (None) Encounter Status:Closed by NIEVES KENNY on 04/02/21 [facility] ([id number]) 1985 M Date Time Provider Department 03/02/21 ABIGAIL BAUTISTA [facility] During your visit today, we recorded the following information about you: JUDITH Escobar 03/02/2021 8:08 AM Signed External records received; scanned into [employer] and forwarded to JUDITH Mcdaniel Allergies As of Date: 03/02/2021 (Not on File) Date Reviewed: Never Reviewed Reason for Visit: Received Outside Medical Records [2027] Prescriptions as of 03/02/2021 Sig: ALBUTEROL SULFATE HFA 90 MCG/* Inhale 2 Puffs as instructed * Problem List As Of Date: 03/02/2021 (None) Encounter Status:Closed by LYN BRADEN on 03/03/21 [facility] ([id number]) 1985 M Date Time Provider Department 01/27/21 NIEVES KENNY [facility] During your visit today, we recorded the following information about you: JUDITH Escobar 01/27/2021 3:49 PM Signed External records received from [facility] Scanned to [employer] and forwarded to JUDITH Mcdaniel MD 01/28/2021 2:59 PM Signed Outside records reviewed. EGD 10/2018 --LA grade A esophagitis (biopsies unremarkable) --Stomach, duodenum unremarkable Colonoscopy 11/2017 --Hemorrhoids --ileum and colon otherwise unermarkable --Random biopsies obtained for microscopic colitis (biopsies unremarkable) Allergies As of Date: 01/27/2021 (Not on File) Date Reviewed: Never Reviewed Reason for Visit: Received Outside Medical Records [3576] Prescriptions as of 01/27/2021 Sig: ALBUTEROL SULFATE HFA 90 MCG/* Inhale 2 Puffs as instructed * Problem List As Of Date: 01/27/2021 (None) Encounter Status:Closed by LYN BRADEN on 01/28/21 [facility]INE[facility] ([id number]) 1985 M Date Time Provider Department 01/25/21 NIEVES KENNY [facility] During your visit today, we recorded the following information about you: Manuela Martin 01/25/2021 2:39 PM Signed Isiah Martinez is calling Nieves Kenny MD today with concern regarding the miralax it is giving him severe diarrhea. Patient has been identified by name and birthdate.yes Duration of symptoms:ongoing Person calling: self Call patient at: at home [phone] (home) Was an appointment scheduled: No Closing statement: Symptom Call: Thank you for calling [facility], your call is very important. A nurse will call in approximately 2-4 hours during business hours. If this is an emergency, please contact 911. Manuela Mario Trevino RN 01/26/2021 3:45 PM Signed Called patient - left voice mail message - request call back to get additional information. JUDITH Escobar 01/26/2021 4:05 PM Signed Patient was taking [...] Status:Closed by OTILIA TREVINO RN on 01/26/21 [facility] 01-13-2021 [facility] ([facility]) ISIAH MARTINEZ ([id number]) 1985 Date Time Provider Department 01/13/21 NIEVES KENNY [facility] During your visit today, we recorded [...] Patient advised. miralax prep emailed to patient. JUDITH Escobar Allergies As of Date: 01/13/2021 (Not on File) Date Reviewed: Never Reviewed Reason for Visit: Results [95] Prescriptions as of 01/13/2021 Sig: ALBUTEROL SULFATE HFA 90 MCG/* Inhale 2 Puffs as instructed * Problem List As Of Date: 01/13/2021 (None) Encounter Status:[facility] IVETTEIS[facility]H [facility]OS ([id number]) 1985 M Date Time Provider Department 01/13/21 NIEVES KENNY During your visit today, we recorded the following information about you: Manuela Martin 01/13/2021 12:52 PM Signed Message Received: Yesterday MD Chavez Purvis Ddsi Clerical Pool; Chavez Jane Clinical Pool Please schedule for virtual visit [...] Encounter Status:Closed by MANUELA MARTIN on 01/13/21 Normal [facility] C-Reactive Proteinon 021 CRP [Mass/Vol] mg/L Normal <0.9 [facility] Comment on above: Performed By: #### C ELSCR, CRP #### [facility] [address] [place] [address] CBC W Auto Differential pane l (Bld)on 01-12-2021 Basophils (Bld) [#/Vol] 0.08 10*3/uL <0.11 k/uL [facility] Basophils/100 WBC (Bld) 0.9 % [facility] Differential cell count method Nom (Bld) Auto Diff [facility] Eosinophils (Bld) [#/Vol] 0.48 10*3/uL High <0.46 k/uL [facility] Eosinophils/100 WBC (Bld) 5.3 % [facility] Erythrocyte distribution width (RBC) [Ratio] 12.7 % 11.5 - 15.0 % [facility] Hematocrit (Bld) [Volume fraction] 49.5 % 39.0 - 51.0 % [facility] Hemoglobin (Bld) [Mass/Vol] 16.6 g/dL 13.0 - 17.0 g/dL [facility] Lymphocytes (Bld) [#/Vol] 1.94 10*3/uL 1.00 - 4.00 k/uL [facility] Lymphocytes/100 WBC (Bld) 21.2 % [facility] MCH (RBC) [Entitic mass] 30.8 pG 26.0 - 34.0 pG [facility] MCHC (RBC) [Mass/Vol] 33.5 g/dL 30.5 - 36.0 g/dL [facility] MCV (RBC) [Entitic vol] 91.8 fL 80.0 - 100.0 fL [facility] Monocytes (Bld) [#/Vol] 0.99 10*3/uL High <0.87 k/uL [facility] Monocytes/100 WBC (Bld) 10.8 % [facility] Neutrophils (Bld) [#/Vol] 5.64 10*3/uL 1.45 - 7.50 k/uL [facility] Neutrophils/100 WBC (Bld) 61.8 % [facility] Nucleated RBC (Bld) [#/Vol] 10*3/uL <0.01 k/uL [facility] Nucleated Reds 0.0 /100 WBC 0 /100 WBC [facility] Platelet mean volume (Bld) [Entitic vol] 11.2 fL 9.0 - 12.7 fL [facility] Platelets (Bld) [#/Vol] 228 10*3/uL 150 - 400 k/uL [facility] RBC (Bld) [#/Vol] 5.39 10*6/uL 4.20 - 6.0 0 m/uL [facility] WBC (Bld) [#/Vol] 9.13 10*3/uL 3.70 - 11. 00 k/uL [facility] CBC and Differentialon 01-12 Abs Baso 0.08 k/uL Normal <0.11 [facility] Comment on above: Performed By: #### C ELSCR, CRP #### [facility] [address] [place], [place] [address] Abs Clinch 0.99 k/uL High <0.87 [facility] Comment on above: Performed By: #### C ELSCR, CRP #### [facility] [address] [place], [place] [address] Abs Neut 5.64 k/uL Normal 1.45-7.50 [facility] Comment on above: Performed By: #### C ELSCR, CRP #### [facility] [address] [place], [place] [address] Absolute nRBC <0.01 Normal <0.01 [facility] Comment on above: Performed By: #### C ELSCR, CRP #### [address] [place], [place] [address] Basophils/100 WBC (Bld) 0.9 % Normal [facility] Comment on above: Performed By: #### C ELSCR, CRP #### [address] [place], [place] [address] DTYPE Auto Diff Normal [facility] Comment on above: Performed By: #### C ELSCR, CRP #### [address] [place], [place] [address] Eosinophils (Bld) [#/Vol] 0.48 10*3/uL High <0.46 [facility] Comment on above: Performed By: #### C ELSCR, CRP #### [facility] [address] [place], [place] [address] Eosinophils/100 WBC (Bld) 5.3 % Normal [facility] Comment on above: Performed By: #### C ELSCR, CRP #### [facility] [address] [place], [place] [address] Erythrocyte distribution width (RBC) [Ratio] 12.7 % Normal 11.5-15.0 [facility] Comment on above: Performed By: #### C ELSCR, CRP #### [address] [place] [address] Hematocrit (Bld) [Volume fraction] 49.5 % Normal 39.0-51.0 [facility] Comment on above: Performed By: #### C ELSCR, CRP #### [place] [address] Hemoglobin (Bld) [Mass/Vol] 16.6 g/dL Normal 13.0-17.0 [facility] Comment on above: Performed By: #### C ELSCR, CRP #### [place] [address] Lymphocytes (Bld) [#/Vol] 1.94 10*3/uL Normal 1.00-4.00 [facility] Comment on above: Performed By: #### C ELSCR, CRP #### [place] [phone] Lymphocytes/100 WBC (Bld) 21.2 % Normal [facility] Comment on above: Performed By: #### C ELSCR, CRP #### [place] [address] MCH 30.8 pG Normal 26.0-34.0 [facility] Comment on above: Performed By: #### C ELSCR, CRP #### [place] [address] MCHC (RBC) [Mass/Vol] 33.5 g/dL Normal 30.5-36.0 [facility] Comment on above: Performed By: #### C ELSCR, CRP #### [place] [address] MCV (RBC) [Entitic vol] 91.8 fL Normal 80.0-100.0 [facility] Comment on above: Performed By: #### C ELSCR, CRP #### [address] [place], [place] [address] Monocytes/100 WBC (Bld) 10.8 % Normal [facility] Comment on above: Performed By: #### C ELSCR, CRP #### [address] [place], [place] [address] Neutrophils/100 WBC (Bld) 61.8 % Normal [facility] Comment on above: Performed By: #### C ELSCR, CRP #### [address] [place], [place] [address] NRBCs 0.0 /100 WBC Normal 0 [facility] Comment on above: Performed By: #### C ELSCR, CRP #### [address] [place], [place] [address] Platelet mean volume (Bld) [Entitic vol] 11.2 fL Normal 9.0-12.7 [facility] Comment on above: Performed By: #### C ELSCR, CRP #### [address] [address] Platelets (Bld) [#/Vol] 228 10*3/uL Normal 150-400 [facility] Comment on above: Performed By: #### C ELSCR, CRP #### [address] [address] RBC (Bld) [#/Vol] 5.39 10*6/uL Normal 4.20-6.00 [facility] Comment on above: Performed By: #### C ELSCR, CRP #### [address] [place], [place] [address] WBC (Bld) [#/Vol] 9.13 10*3/uL Normal 3.70-11.00 [facility] Comment on above: Performed By: #### C ELSCR, CRP #### [address] [place], [place] [address] CNOVon 01-12-2021 CNOV Office Visit ([facility] ) ISIAH MARTINEZ ([id number]) 1985 M Date Time Provider Department 01/12/21 2:30 PM NIEVES KENNY [facility] During your visit today, we recorded the following information about you: Temperature Pulse Blood pressure Weight 98.9 degrees 81/minute 146/83 80.9 kg Height 1.702 m Nieves Kenny MD 01/12/2021 3:11 PM Signed DEPARTMENT OF GASTROENTEROLOGY AND HEPATOLOGY [facility] Patient: Isiah Martinez Medical Record: [id number] Reason for visit: Chronic diarrhea Subjective HPI [...] not improve his symptoms. Extensive evaluation at [facility], including EGD/colonoscopy and extensive radiographic imaging. [...] EKG --Request for outside records submitted by cryptologic support specialist --Rtc 4 weeks for visit Nieves Kenny [...] [R19.7] Order(s):CBC + DIFF [SQCBCDIF] Order #: [id number] FUTURE COMP METABOLIC PANEL [SQCMP] Order #: [id number] FUTURE CELIAC SCREEN WITH REFLEX [SQCELSCR] Order #: [id number] FUTURE PROTHROMBIN TIME/PT [SQPT] Order #: [id number] FUTURE C-REACTIVE PROTEIN (CRP) [SQCRP] Order #: [id number] FUTURE CALPROTECTIN,FECAL [SQCALPRO] Order #: [id number] SODIUM, STOOL [SQSNA] Order #: [id number] POTASSIUM STOOL [SQSK] Order #: [id number] PH, FECAL [SQFECLPH] Order #: [id number] XR ABDOMEN 1V SUPINE [1271 (more content not included)... Normal [facility] CNPNon 01-12-2021 CNPN Telephone (GASTSP) ISIAH MARTINEZ ([id number]) 1985 M Date Time Provider Department 01/12/21 NIEVES KENNY [facility] During your visit today, we recorded the following information about you: Otilia Trevino RN 01/12/2021 4:11 PM Signed Signed consent form faxed to Dr. Abigail Frances at [phone]. Consent form scanned in epic. Otilia Trevino RN 01/12/2021 4:11 PM Signed Called [facility]/Dr. Marlon Eldridge at [phone]. Left voice message - request call back [...] Dr. Eldridge office. Given their fax # [phone]. Signed consent form faxed with confirmation. Form scanned in [employer]. Allergies As of Date: 01/12/2021 (Not on File) Date Reviewed: Never Reviewed Reason for Visit: Request Outside Medical Records [7269] Cmt: Dr. Frances and [facility]/Dr. Eldridge Prescriptions as of 01/12/2021 Sig: ALBUTEROL SULFATE HFA 90 MCG/* Inhale 2 Puffs as instructed * Problem List As Of Date: 01/12/2021 (None) Encounter Status:Closed by OTILIA TREVINO RN on 01/12/21 Normal [facility] Celiac Scr w Reflexon 2020 IgA [Mass/Vol] 257 mg/dL Normal 70-400 [facility] Comment on above: Performed By: #### C ELSCR, CRP #### [place] [address] [place] [address] Interpretation No serologic evidenc e of celiac disease. Normal No serologic evidence of celiac disease. [facility] Comment on above: Performed By: #### C ELSCR, CRP #### [facility] [address] [place] [address] Transglutaminase IgA 5 Units Normal <20 [facility] Comment on above: Result Comment: Nega tive : < 20 Units Weak Positive : 20 - 30 Units Moderate Pos to Strong Pos: >30 Units The following results were obtained with the [employer] QUANTA Lite h-tTG IgA LOW. h-tTG IgA values obtained with different manufacturers' assay methods may not be used interchangeably. The magnitude of the reported IgA levels cannot be correlated to an endpoint titer. Performed By: #### C ELSCR, CRP #### [facility] [address] [place] [address] Comp Metabolic Panelon 01-12 Albumin [Mass/Vol] 4.4 g/dL Normal 3.5-5.0 [facility] Comment on above: Performed By: #### C ELSCR, CRP #### [facility] [address] [place], [place] [address] ALP [Catalytic activity/Vol] 80 U/L Normal 38-113 [facility] Comment on above: Performed By: #### C ELSCR, CRP #### [facility] [address] [place] [id number] ALT [Catalytic activity/Vol] 18 U/L Normal 10-54 [facility] Comment on above: Performed By: #### C ELSCR, CRP #### [facility] [address] [place] [address] Anion gap [Moles/Vol] 9 mmol/L Normal 0-15 [facility] Comment on above: Performed By: #### C ELSCR, CRP #### [place] [address] [place] [address] AST [Catalytic activity/Vol] 22 U/L Normal 14-40 [facility] Comment on above: Performed By: #### C ELSCR, CRP #### [facility] [address] [place] [address] Bilirubin [Mass/Vol] 0.5 mg/dL Normal 0.2-1.3 [facility] Comment on above: Performed By: #### C ELSCR, CRP #### [facility] [address] [place] [phone] Calcium [Mass/Vol] 9.2 mg/dL Normal 8.5-10.2 [facility] Comment on above: Performed By: #### C ELSCR, CRP #### [facility] [address] [place] [phone] Chloride [Moles/Vol] 103 mmol/L Normal 97-105 [facility] Comment on above: Performed By: #### C ELSCR, CRP #### [facility] [address] [place] [address] CO2 [Moles/Vol] 26 mmol/L Normal 22-30 [facility] Comment on above: Performed By: #### C ELSCR CRP #### [facility] [address] [place] [address] Creatinine [Mass/Vol] 1.00 mg/dL Normal 0.73-1.22 [facility] Comment on above: Performed By: #### C ELSCR CRP #### [place] [address] eGFR- Amer. >60 Normal [facility] Comment on above: Performed By: #### C ELSCR CRP #### [place] [address] eGFR-All Other Races >60 Normal [facility] Comment on above: Result Comment: eGFR (Estimated [...] reflect actual GFR. Performed By: #### C ELSCR CRP #### [place] [address] [place] [address] Glucose [Mass/Vol] 100 mg/dL High 74-99 [facility] Comment on above: Performed By: #### C ELSCR CRP #### [place] [address] [place] [address] Potassium [Moles/Vol] 3.9 mmol/L Normal 3.7-5.1 [facility] Comment on above: Performed By: #### C ELSCR CRP #### [place] [address] Protein [Mass/Vol] 7.0 g/dL Normal 6.3-8.0 [facility] Comment on above: Performed By: #### C ELSCR, CRP #### [facility] [address], [place] [phone] Sodium [Moles/Vol] 138 mmol/L Normal 136-144 [facility] Comment on above: Performed By: #### C ELSCR, CRP #### [facility] [address], [place] [phone] Urea nitrogen [Mass/Vol] 8 mg/dL Low 9-24 [facility] Comment on above: Performed By: #### C ELSCR, CRP #### [facility] [address], [place] [phone] Comprehensive metabolic 2000 panelon 01-12-2021 Albumin [Mass/Vol] 4.4 g/dL 3.5 - 5.0 g/dL [facility] ALP [Catalytic activity/Vol] 80 U/L 38 - 113 U/L [facility] ALT [Catalytic activity/Vol] 18 U/L 10 - 54 U/L [facility] Anion gap [Moles/Vol] 9 mmol/L 0 - 15 mmol/L [facility] AST [Catalytic activity/Vol] 22 U/L 14 - 40 U/L [facility] Bilirubin [Mass/Vol] 0.5 mg/dL 0.2 - 1 .3 mg/dL [facility] Calcium [Mass/Vol] 9.2 mg/dL 8.5 - 10. 2 mg/dL [facility] Chloride [Moles/Vol] 103 mmol/L 97 - 10 5 mmol/L [facility] CO2 [Moles/Vol] 26 mmol/L 22 - 30 mmol/L [facility] Creatinine [Mass/Vol] 1.00 mg/dL 0.73 - 1.22 mg/dL [facility] GFR/1.73 sq M.predicted among blacks MDRD (S/P/Bld) [Vol rate/Area] mL/min/{1.73_m2} [facility] GFR/1.73 sq M.predicted among non-blacks MDRD (S/P/Bld) [Vol rate/Area] mL/min/{1.73_m2} [facility] Glucose [Mass/Vol] 100 mg/dL High 74 - 99 mg/dL [facility] Potassium [Moles/Vol] 3.9 mmol/L 3.7 - 5.1 mmol/L [facility] Protein [Mass/Vol] 7.0 g/dL 6.3 - 8.0 g/dL [facility] Sodium [Moles/Vol] 138 mmol/L 136 - 144 mmol/L [facility] Urea nitrogen [Mass/Vol] 8 mg/dL Low 9 - 24 mg/dL [facility] Laboratory - Chemistry and C hemistry - challengeon 01-12-2021 CRP [Mass/Vol] mg/L <0.9 mg/dL [facility] No Panel Informationon 01-12 [facility] PT panel Coag (PPP)on 2020 INR Coag (PPP) [Relative time] 0.9 {INR} 0.9 - 1.3 [facility] PT Coag (PPP) [Time] 10.4 s 9.7 - 1 3.0 sec [facility] Protimeon 01-12-2021 PT INR 0.9 Normal 0.9-1.3 [facility] Comment on above: Result Comment: Anushka min K Antagonist (VKA) Therapeutic Range: INR 2 to 3 (Target INR of 2.5) Note: For patients treated with VKA drugs, such as warfarin, the [place] 2012 Guideline recommends [...] Chest 2012, 141:7S-47S Dejan RA, et al. [facility] 2017, 70: 252-289 Performed By: #### C ELSCR, CRP #### [facility] [address] [place], [place] [address] PT Sec 10.4 sec Normal 9.7-13.0 [facility] Comment on above: Performed By: #### C ELSCR, CRP #### [facility] [address] [place], [place] [address] XR ABDOMEN 1V SUPINEon 01-12 XR ABDOMEN [...] Jan 12 2021 4:45PM EST [id number] Normal [facility] Vital Signs Date Time Vital Sign Value Performing Clinician Facility 07-16-2023 12:55-0400 Body height 172.72 cm Madisyn Lea Other [facility] Other 07-16-2023 12:55-0400 Body mass index (BMI) [Ratio] 24.11 kg/m2 Madisyn Lea Other [facility] Other 07-16-2023 12:55-0400 Body temperature 99.1 [degF] Madisyn Lea Other [facility] Other 07-16-2023 12:55-0400 Body weight 71.94 kg Madisyn Lea Other [facility] Other 07-16-2023 12:55-0400 Respiratory rate 18 /min Madisyn Lea Other [facility] Other 07-16-2023 12:55-0400 SaO2% (BldA) [Mass fraction] 92 % Madisyn Lea Other [facility] Other 01-12-2021 14:11-0400 Body height 170.2 cm Nieves Kenny MD Work Phone: [facility] 01-12-2021 14:11-0400 Body temperature 98.91 [degF] Nieves Kenny MD Work Phone: [facility] 01-12-2021 14:11-0400 Body weight 80.88 kg Nieves Kenny MD Work Phone: [facility] 01-12-2021 14:11-0400 Diastolic blood pressure 83 mm[Hg] Nieves Kenny MD Work Phone: [facility] 01-12-2021 14:11-0400 Heart rate 81 /min Nieves Kenny MD Work Phone: [facility] 01-12-2021 14:11-0400 Systolic blood pressure 146 mm[Hg] Nieves Kenny MD Work Phone: [facility] Encounters Encounter Date Encounter Type Care Provider Facility Start: 01-17-2024 End: 01-18-2024 ambulatory Tamanna Yap [employer] Facility:[facility] Start: 12-15-2023 End: 01-17-2024 ambulatory MARCUS MARTINEZ [facility] Start: 12-14-2023 Encounter for preprocedural laboratory examination TAMANNA YAP [facility] Start: 12-14-2023 End: 12-15-2023 [facility] Start: 12-11-2023 End: 12-15-2023 ambulatory CESAR MCFARLANE [facility] Start: 11-29-2023 End: 11-30-2023 Emergency department patient visit ANGI SILVESTRE [facility] Start: 11-16-2023 End: 11-17-2023 ambulatory Tamanna A Marely [employer]EW[employer]C Facility[facility] Start: 10-30-2023 End: 10-31-2023 [facility] Start: 10-19-2023 End: 10-20-2023 ambulatory Tamanna A Marely [employer]C Facility: [facility] Start: 08-03-2023 ambulatory Tamanna A Marely [employer]C [facility] [place] Start: 08-01-2023 End: 08-02-2023 ambulatory Tamanna A Marely [employer]C Facility: [facility] Start: 07-16-2023 End: 07-16-2023 ambulatory Madisyn Lea Other [facility] Other Start: 07-16-2023 Office outpatient ne w 20 minutes Madisyn Lea [facility] Start: 02-15-2023 End: 02-16-2023 ambulatory Tamanna A Marely [employer]C Facility: [facility] Start: 06-11-2021 End: 06-11-[address] MARSHAL GALAN Facility: Start: 01-12-2021 End: 01-12-2021 Patient encounter procedure Nieves Kenny MD Work Phone: Gastroenterology Comment on above: Abdominal pain, unsp ecified abdominal location (Primary Dx); Diarrhea, unspecified type; Overflow diarrhea Start: 01-12-2021 End: 01-12-2021 Telephone encounter Nieves Kenny MD Work Phone: Gastroenterology Comment on above: Request Outside [facility] Records (Dr. Frances and [facility]/Dr. Eldridge) Start: 12-26-2020 End: 12-26-2020 Patient encounter procedure Nieves Kenny Work Phone: [facility] Start: 12-26-2020 Results Only Nieves calvin Work Phone: Gastroenterology Procedures Date Procedure Procedure Detail Performing Clinician Start: 12-26-2020 PT ED PATIENT INFORMATION Nieves Kneny Work Phone: Plan of Treatment Date Care Activity Detail Author Start: 05-19-2021 Influenza vaccination INFLUENZA (Sea son Ended) [facility] Start: 2018 LIPID SCREEN LIPID SCREEN [facility] Start: 2002 Urine microalbumin profile DTAP,TDAP ,TD (1 - Tdap) [facility] Start: 2001 HEPATITIS C SCREENING HEPATITIS C SC REENING [facility] Start: 2001 HIV SCREENING HIV SCREENING [facility] Start: 1995 Adult depression scr eening assessment DEPRESSION SCREENING [facility] Calprotectin [Mass/m ass] in Stool CALPROTECTIN,FECAL Lab Routine Abdominal pain, unspecified abdominal location Diarrhea, unspecified type Ordered: 01/12/2021 [facility] Comment on above: Ordered: 01/12/2021 CELIAC SCREEN WITH REFLEX CELIAC SCREEN WITH REFLEX Lab Routine Abdominal pain, unspecified abdominal location Diarrhea, unspecified type 01/12/2021 3:52 PM EDT [facility] End: 01-12-2022 ECG COMPLETE ECG COMPLETE ECG Routine Abdominal pain, unspecified abdominal location Diarrhea, unspecified type 1 Occurrences starting 01/12/2021 until 01/12/2022 [facility] Comment on above: 1 Occurrences starti ng 01/12/2021 until 01/12/2022 PH, FECAL PH, FECAL Lab Ro utine Abdominal pain, unspecified abdominal location Diarrhea, unspecified type Ordered: 01/12/2021 [facility] Comment on above: Ordered: 01/12/2021 POTASSIUM STOOL POTASSIUM STOOL Lab Routine Abdominal pain, unspecified abdominal location Diarrhea, unspecified type Ordered: 01/12/2021 [facility] Comment on above: Ordered: 01/12/2021 PT ED PATIENT INFORMATION PT ED PATIENT INFORMATION Other 12/26/2020 [facility] SODIUM, STOOL SODIUM, STOOL La b Routine Abdominal pain, unspecified abdominal location Diarrhea, unspecified type Ordered: 01/12/2021 [facility] Comment on above: [facility]: [facility] P[facility] Date Payer Category Payer Private Health Insurance 2023 Unknown [id number] 2022 Medicaid [id number] 2022 Unknown [id number] 2020 Unknown [employer] PPO [id number] 2020-Present PPO [id number] 1983 Unknown [id number] 93 1983 Unknown [id number] 286 1983 Unknown [id number] [id number] 286 1983 Unknown [id number] [id number] 286 1983 Unknown [id number] [id number] 286 1983 Unknown [id number] [id number] 286 1983 Unknown [id number] 2.16840.1.229887.3.579.2.1 286 1983 Unknown [id number] 2.16840.1.301676.3.579.2.7 18 1983 Unknown [id number] [id number] 18 1983 Unknown [id number] 2.16840.1.379030.3.579.2.7 18 1983 Unknown [id number] 2.16840.1.528026.3.579.2.7 18 1983 Unknown [id number] [id number] 18 1983 Unknown [id number] [id number] 18 1959 Self-pay [id number] Social History Date Type Detail Facility Tobacco smoking status [facility] Unknown if ever smoked [facility] Start: 1985 Sex Assigned At Not on file C [facility] Start: 01-12-2021 Tobacco smoking status [facility]IS Current every day smoker [facility] History of tobacco use Cigarette Smoker [facility] Start: 01-12-2021 Tobacco use and exposure Current user [facility] Exposure to SARS-CoV-2 (event) Not sure [facility] Sex Assigned At Sex Assigned At [facility] Other Medication management note 01-23-2024 Note Date & Type Note Facility 01-23-2024 Note Entered by Priya Dumont on January 23, 2024 10:22:11 EDT From: Priya Dumont To: [facility] #[id number] Sent: 01/23/2024 10:22:11 EDT Subject: Medication Management Not Approved: medication d/c buPROPion (BUPROPION HCL XL 150 MG TABLET) take 1 tablet by mouth every 24 hours Qty: 14 tab(s) Days Supply: 14 Refills: 0 Substitutions Allowed Route To Pharmacy - [facility] #[id number] Note from Pharmacy: reducing medicine with plans to wean off in next 2 weeks Signed by Priya Dumont From: [facility] #[id number] To: Marely MEDINA, Tamanna Rodríguez CNP Sent: January 23, 2024 8:53:17 AM CDT Subject: Medication Management Due: January 24, 2024 6:28:00 AM CDT On Hold Pending Signature Drug: buPROPion (Wellbutrin XL 150 mg/24 hours oral tablet, extended release), 1 tab(s) Oral q24hr Quantity: 14 EA Days Supply: 14 Refills: 0 Substitutions Allowed Notes from Pharmacy: reducing medicine with plans to wean off in next 2 weeks Dispensed Drug: buPROPion (buPROPion 150 mg/24 hours (XL) oral tablet, extended release), take 1 tablet by mouth every 24 hours Quantity: 14 tab(s) Days Supply: 14 Refills: 0 Substitutions Allowed Notes from Pharmacy: reducing medicine with plans to wean off in next 2 weeks [facility] Evaluation note 07-16-2023 Note Date & Type [...] the ER for worsening symptoms or concerns [facility] Other Progress note 01-29-2021 Note Date & Type Note Facility 01-29-2021 Note HNO ID: [id number] Author: Nieves Kenny MD Service: ? Author Type: Physician Type: Progress Notes Filed: 01/29/2021 12:39 PM Note Text: DEPARTMENT OF GASTROENTEROLOGY AND HEPATOLOGY [facility] VIRTUAL VISIT Patient: Isiah Martinez Medical Record: [id number] Reason for visit: Chronic constipation Subjective HPI [...] with VKA drugs, such as warfarin, the [place] [employer] 2012 Guideline recommends [...] to 3.5 (target INR of 3). Nuvia ALMANZAR, et al. Chest 2012, 141:7S-47S Dejan RA, et al. [facility] 2017, 70: 252-289 Component Latest Ref [...] and asthma, who (more content not included)... [facility] Progress note 01-12-2021 Note Date & Type Note Facility 01-12-2021 Note HNO ID: [id number] Author: RT Danny(R) Service: Radiology Author Type: [employer] C[employer]aker Type: Progress Notes Filed: 01/12/2021 4:18 PM [...] RT Danny(R) January 12, 2021 4:18 PM [facility] Clinical Note 01-12-2021 Note Date & Type Note Facility 01-12-2021 Note HNO ID: [id number] Author: Tamanna Moore RN Service: Cardiovascular Medicine Author Type: Registered Nurse Type: Nursing Progress Note Filed: 01/12/2021 3:55 PM Note Text: EKG completed [facility] Progress note 01-12-2021 Note Date & Type Note Facility 01-12-2021 Note HNO ID: [id number] Author: Nieves Kenny MD Service: ? Author Type: Physician Type: Progress Notes Filed: 01/12/2021 3:11 PM Note Text: DEPARTMENT OF GASTROENTEROLOGY AND HEPATOLOGY [facility] Patient: Isiah Martinez Medical Record: [id number] Reason for visit: Chronic diarrhea Subjective HPI [...] not improve his symptoms. Extensive evaluation at [facility], including EGD/colonoscopy and extensive radiographic imaging. [...] EKG --Request for outside records submitted by cryptologic support specialist --Rtc 4 weeks for visit Nieves Kenny MD Staff, Gastroenterology [facility] Note 01-12-2021 Telephone Encounter - Otilia Trevino RN - 01/12/2021 4:10 PM EDTTelephone Encounter - Otilia Trevino RN - 01/12/2021 4:08 PM EDT Note Date & Type Note Facility 01-12-2021 Miscellaneous Notes Called [facility]/Dr. Marlon Eldridge at [phone]. Left voice message - request call back for their fax # so that consent form can be faxed over. Awaiting call back. Signed consent form faxed to Dr. Abigail Frances at [phone]. Consent form scanned in [employer]. documented in this encounter [facility] History of Present illness Narrative 01-12-2021 Nieves Kenny MD - 01/12/2021 2:23 PM EDT Note Date & Type Note Facility 01-12-2021 History of Presen t illness Narrative Images from the original note were not included. DEPARTMENT OF GASTROENTEROLOGY AND HEPATOLOGY [facility] Patient: Isiah Martinez Medical Record: [id number] Reason for visit: Chronic diarrhea Subjective HPI [...] not improve his symptoms. Extensive evaluation at [facility], including EGD/colonoscopy and extensive radiographic imaging. [...] EKG --Request for outside records submitted by cryptologic support specialist --Rtc 4 weeks for visit Nieves Kenny MD Staff, Gastroenterology documented in this encounter [facility] Evaluation note Note Date & Type Note Facility Evaluation note Diagnosis Abdominal pain, unspecified abdominal location- Primary Diarrhea, unspecified type Overflow diarrhea Diarrhea documented in this encounter [facility] History general Narrative - Reported Note Date & Type Note Facility History general Narrative - Reported Type Medical History asthma Surgical History APPENDECTOMY Surgical History GALL BLADDER [facility] Other Summary Purpose Family History No Family [...] or prosecute any alcohol or drug abuse patient.[facility] the event this information is protected by the Federal Confidentiality of Alcohol and Drug Abuse Patient Records regulations: The Federal rules restrict any use of the information to criminally investigate or prosecute any alcohol or drug abuse patient.[facility] the event this information is protected by the Federal Confidentiality of Alcohol and Drug Abuse Patient Records regulations: The Federal rules restrict any use of the information to criminally investigate or prosecute any alcohol or drug abuse patient.[facility] Reason for Visit (unrecogniz ed section and content) Reason Comments New Patient PCP referral - diarr hea 4-5x/wk for 15 yrs. Constant abdominal pain and nausea, no vomiting. Appendix removed 10 yrs ago. GB removed 2018 Reason Comments Request Outside Medical Records Dr. Troy jose and [facility]/Dr. Eldridge (unrecognized sect ion and content) No Status Records FoundNo Status Records FoundNo Status Records FoundNo Status Records FoundNo Status Records Found INFORMATION SOURCE (unrecogn ized section and content) DATE CREATED AUTHOR 01/14/2021 [facility] DATE CREATED AUTHOR AUTHOR'S ORGANIZ ATION 06/26/2021 [facility] DATE CREATED AUTHOR AUTHOR'S ORGANIZ ATION 10/18/2021 [facility] DATE CREATED AUTHOR AUTHOR'S ORGANIZ ATION 01/18/2024 [facility] DATE CREATED AUTHOR AUTHOR'S ZULEYKA ATION 02/10/2024 [facility] FOR RECORDS PERTAINING TO PATIENTS WHO ARE [...] BE BASED ON THE PRIMARY CLINICAL RECORDS. [facility] [place] [facility] [facility] provides no warranty or guarantee of the accuracy or completeness of information in this document.
--- NOTE | 2024-05-03 20:25 | XR_ITS ---
The [address] [address] Patient Name: DIONNE MARTINEZ MRN: [id number] date: 1985 Sex: M Assigned Patient Location: ER Current Patient Location: Accession/Order Number: [id number] Exam Date: 05/03/2024 20:53 Report Date: 05/03/2024 22:25 At the request of: DIXON VALERIO Procedure: XR hand LT min 3V XR hand LT min 3V, 05/03/2024 7:53 PM CDT: History: dog bite. . Comparison: None. Technique: 3 views left hand Findings/Impression: There is no acute fracture or malalignment. There is no radiopaque foreign body. Electronically authenticated by: LENIN WOLFF Date: 05/03/2024 22:25
--- NOTE | 2024-05-03 20:28 | ED.ANIMALBI1 ---
HPI - Animal Bite General Chief Complaint: Animal Bite Stated Complaint: BITE BY DOG Time Seen by Provider: 05/03/24 20:21 Source: patient Mode of arrival: walk-in Limitations: no limitations History of Present Illness HPI narrative: 39-year-old male presents to the ER for evaluation of dog bite to the left hand. Patient was with his friend, the dog it's a mut belongs to his friend states the dog approached him and he stuck out his hand to tell it no when he believes he startled the dog and it bit his hand. He reports the dog's vaccinations are up-to-date. Patient believes he is up-to-date on his tetanus. The dog can be observed. Patient has 2 puncture wounds to the palm and abrasions noted to the dorsum of the hand with localized mild to moderate pain. Patient is right-hand dominant. MD complaint: Reports animal bite Animal: Reports dog Description of animal: Reports household pet Mechanism: Reports bite Location - Extremities: Left: hand Pain description: Reports constant Severity: moderate Context: Reports provoked (put hand in dogs face/ abruptly) Related Data Patient tetanus UTD: Yes Home Medications ?Medication ?Instructions ?Recorded ?Confirmed albuterol sulfate 1.25 mg/3 mL mg 07/20/23 solution for nebulization albuterol sulfate 90 mcg/actuation inhalation 07/20/23 aerosol inhaler Previous Rx's ?Medication ?Instructions ?Recorded amoxicillin 875 mg-potassium 1 tab PO Q12H 7 days #14 tabs 05/03/24 clavulanate 125 mg tablet ibuprofen 600 mg tablet 600 mg PO TID PRN pain 10 days #30 05/03/24 tabs Allergies Allergy/AdvReac Type Severity Reaction Status Date / Time morphine Allergy Mild itchy Verified 05/03/24 20:26 Review of Systems ROS Constitutional Denies: fever or chills Eyes Denies: change in vision Ears, nose, mouth, and throat Denies: throat pain Cardiovascular Denies: chest pain or palpitations Respiratory Denies: shortness of breath or cough Gastrointestinal Denies: abdominal pain or nausea Genitourinary Denies: painful urination Musculoskeletal Reports: extremity pain (left hand); Denies: back pain or neck pain Integumentary/Breast Denies: rash Neurological Denies: headache Psychiatric Denies: anxiety PFSH PFS Social History Smoking status: Current every day smoker Exam Narrative Exam Narrative: Nurse's notes and vital signs reviewed. Patient is not hypoxic. General: The patient appears well and in no apparent distress. Patient is resting comfortably on cart. Skin: Warm, dry, no pallor noted. Puncture wound noted to the left palm at the distal palmar crease, second puncture wound in the thenar eminence. Bleeding controlled. Dorsum of the proximal hand and wrist noted for linear abrasions. Head: Normocephalic, atraumatic Eye: Normal conjunctiva Respiratory: Patient is in no distress Musculoskeletal: The Left wrist shows no obvious deformity. Hand noted for puncture wounds palmar aspect as described above. There was no swelling noted. The patient had full range of motion of fingers despite pain. The patient had tenderness noted to the palm at puncture wounds The patient had no tenderness in the anatomical snuff box. Pulses are intact at brachial and radial 2+. There was no deficit at the elbow or forearm. The patient has normal capillary refill to all distal digits. The patient has no evidence of cyanosis or mottling. The patient is able to flex and extend all digits without difficulty despite pain. Neurological: A&O x4, normal sensory, normal motor Psychiatric: Cooperative Constitutional Vital Signs, click to edit/add: Last Vital Signs Temp 98.1 F 05/03/24 20:21 Pulse 75 05/03/24 20:21 Resp 18 05/03/24 20:21 BP 155/95 H 05/03/24 20:21 Pulse Ox 97 05/03/24 20:21 O2 Del Method Room Air 05/03/24 20:21 Course Vital Signs Vital signs: Vital Signs Temperature 98.1 F 05/03/24 20:21 Pulse Rate 75 05/03/24 20:21 Respiratory Rate 18 05/03/24 20:21 Blood Pressure 155/95 H 05/03/24 20:21 Pulse Oximetry 97 05/03/24 20:21 Oxygen Delivery Method Room Air 05/03/24 20:21 Temperature 98.1 F 05/03/24 20:21 Pulse Rate 75 05/03/24 20:21 Respiratory Rate 18 05/03/24 20:21 Blood Pressure 155/95 H 05/03/24 20:21 Pulse Oximetry 97 05/03/24 20:21 Oxygen Delivery Method Room Air 05/03/24 20:21 MDM - Animal Bite MDM Narrative Medical decision making narrative: Abrasions to the dorsum of the hand and wrist, 2 puncture wounds to the palm. X-ray performed to rule out fracture or foreign body. Medicated with Tylenol and Motrin, antibiotic Augmentin. Patient believes his tetanus is up-to-date states he was bitten by a squirrel earlier in the year treated at [facility]. X-ray reviewed, no evidence of radiopaque foreign body, no evidence of fracture. Hand was cleansed with chlorhexidine wash, irrigated, dressed with bulky gauze dressing. Given potential for infection with dog bite the puncture wounds were not closed with sutures. We discussed secondary intention for healing. Recommend continuation of antibiotics, pain medicine dispensed to home with pharmacy is closed. Recommend continuing with Motrin in the coming days. The patient is to followup with primary care physician in next 2-3 days or to return to the emergency department should any of the signs or symptoms worsen or new symptoms develop. Patient had questions answered. The patient agrees with the following Diagnosis and Treatment plan and the patient will be discharged home. SHARED APC VISIT, PHYSICIAN ATTESTATION: [id number] I performed a substantive part of the MDM during the patient?s E/M visit. I personally evaluated and examined the patient. I personally made or approved the documented management plan and acknowledge its risk of complications. My (EKG/X-Ray/US/CT) interpretation . Management/test interpretation discussed with . Medical Records Medical records narrative: RN contacted [facility], patient is up-to-date on tetanus. Imaging Data left hand: Attestation: I personally reviewed and interpreted this imaging study as follows: My impression: 3 view left hand, no acute fracture, no radiopaque foreign body. Normal alignment. Discharge Plan Discharge Stand Alone Forms: Portal Instructions Chief Complaint: Animal Bite Clinical Impression: Dog bite Patient Disposition: Home, Self-Care Time of Disposition Decision: 21:07 Condition: Good Prescriptions / Home Meds: New amoxicillin-pot clavulanate 875-125 mg tablet 1 tab PO Q12H 7 Days Qty: 14 0RF ibuprofen 600 mg tablet 600 mg PO TID PRN (Reason: pain) 10 Days Qty: 30 0RF No Action albuterol sulfate 1.25 mg/3 mL solution for nebulization albuterol sulfate 90 mcg/actuation HFA aerosol inhaler INHALATION Print Language: Kosovan Instructions: Animal Bite (ED) Additional Instructions: Recommend wound recheck with PCP in 2 to 3 days. Ice and elevate. Off work on Monday. Antibiotic twice daily with food. Recommend Tylenol and Motrin as directed for pain. Referrals: RAJIV SHOOK [Primary Care Provider] - As soon as possible
[2024-05-03] MEDS: ACETAMINOPHEN 500 MG TABLET 1000 MG PO (20:38)
[2024-05-03] MEDS: IBUPROFEN 600 MG TABLET PO (20:39)
[2024-05-03] MEDS: AMOXICILLIN/POTASSIUM CLAV 1 TAB TABLET PO (20:39)
[2024-05-03] MEDS: BACITRACIN 0.9 GM PACKET 1 PACKET TOPICAL (21:25)
[2024-05-03] MEDS: HYDROCODONE/ACET 5-325 MG TABLET 2 TAB PO (21:26)
== END 2024-05-03 21:26 | disposition home or self-care (01) ==
PROVIDERS: Emergency Provider Emergency Medicine
DX: S61.452A Open bite of left hand, initial encounter (principal); W54.0XXA Bitten by dog, initial encounter; F17.200 Nicotine dependence, unspecified, uncomplicated
CPT/HCPCS: 73130; 99283